=== PATIENT | female | born 1940 | race Caucasian/White ===

== ENCOUNTER → 2018-05-15 13:26 | Outpatient (CLI) | payer MEDICARE, SELFPAY ==
--- NOTE | 2018-05-15 | DI.MG.S_ITS ---
BILATERAL DIGITAL SCREENING MAMMOGRAM 3D/2D WITH CAD: 05/15/2018 CLINICAL: Routine screening. Comparison is made to exams dated: 04/14/2017 mammogram, 04/11/2016 mammogram, and 04/10/2015 mammogram - [facility]. There are scattered fibroglandular elements in both breasts. Current study was also evaluated with a Computer Aided Detection (CAD) system. There are benign vascular calcifications in both breasts. No significant masses, calcifications, or other findings are seen in either breast. There has been no significant interval change. IMPRESSION: There is no mammographic evidence of malignancy. A 1 year screening mammogram is recommended. This exam was interpreted at Station ID: [id number]. NOTE: For mammograms, a report in lay terms will be sent to the patient. Approximately 15% of breast malignancies will not be visualized mammographically. In the management of a palpable breast mass, a negative mammogram must not discourage biopsy of a clinically suspicious lesion. Electronically Signed By: Angelica biswas/steve:05/15/2018 14:20:31 letter sent: Normal Exam ACR BI-RADS Category 2: Benign Finding(s) 3342F
== END ==
PROVIDERS: PCP Internal Medicine; Visit Provider Internal Medicine
DX: Z12.31 Encounter for screening mammogram for malignant neoplasm of breast (principal)
CPT/HCPCS: 77063; 77067

== ENCOUNTER → 2018-08-11 13:59 | Outpatient (CLI) | payer MEDICARE, SELFPAY | PROVIDERS: PCP Student in an Organized Health Care Education/Training Program; Visit Provider Student in an Organized Health Care Education/Training Program | DX: M85.852 Other specified disorders of bone density and structure, left thigh (principal); Z78.0 Asymptomatic menopausal state; Z90.722 Acquired absence of ovaries, bilateral; Z87.891 Personal history of nicotine dependence | CPT/HCPCS: 77080 ==

== ENCOUNTER → 2019-05-20 16:35 | Outpatient (CLI) | payer MEDICARE, SELFPAY ==
--- NOTE | 2019-05-20 16:36 | DI.MG.S_ITS ---
BILATERAL DIGITAL SCREENING MAMMOGRAM 3D/2D WITH CAD: 05/20/2019 CLINICAL: Routine screening. Comparison is made to exams dated: 05/15/2018 mammogram, 04/14/2017 mammogram, 04/11/2016 mammogram, and 04/10/2015 mammogram - [facility]. There are scattered fibroglandular elements in both breasts. Current study was also evaluated with a Computer Aided Detection (CAD) system. There are benign vascular calcifications in both breasts. No significant masses, calcifications, or other findings are seen in either breast. There has been no significant interval change. IMPRESSION: There is no mammographic evidence of malignancy. A 1 year screening mammogram is recommended. This exam was interpreted at Station ID: [id number]. NOTE: For mammograms, a report in lay terms will be sent to the patient. Approximately 15% of breast malignancies will not be visualized mammographically. In the management of a palpable breast mass, a negative mammogram must not discourage biopsy of a clinically suspicious lesion. Electronically Signed By: Charles alexander/steve:05/20/2019 19:09:01 letter sent: Normal Exam ACR BI-RADS Category 2: Benign Finding(s) 3342F
== END ==
PROVIDERS: PCP Student in an Organized Health Care Education/Training Program; Visit Provider Student in an Organized Health Care Education/Training Program
DX: Z12.31 Encounter for screening mammogram for malignant neoplasm of breast (principal)
CPT/HCPCS: 77063; 77067

== ENCOUNTER → 2020-05-22 10:14 | Outpatient (CLI) | payer MEDICARE, SELFPAY ==
--- NOTE | 2020-05-22 | DI.MG.S_ITS ---
BILATERAL DIGITAL SCREENING MAMMOGRAM 3D/2D WITH CAD: 05/22/2020 CLINICAL: Routine screening. Comparison is made to exams dated: 05/20/2019 mammogram, 05/15/2018 mammogram, and 04/14/2017 mammogram - [facility]. There are scattered fibroglandular elements in both breasts. Current study was also evaluated with a Computer Aided Detection (CAD) system. There are benign vascular calcifications in both breasts. No significant masses, calcifications, or other findings are seen in either breast. There has been no significant interval change. IMPRESSION: BENIGN There is no mammographic evidence of malignancy. A 1 year screening mammogram is recommended. This exam was interpreted at Station ID: [id number]. NOTE: For mammograms, a report in lay terms will be sent to the patient. Approximately 15% of breast malignancies will not be visualized mammographically. In the management of a palpable breast mass, a negative mammogram must not discourage biopsy of a clinically suspicious lesion. Electronically Signed By: Stephen russ/steve:05/22/2020 11:23:46 letter sent: Normal Exam ACR BI-RADS Category 2: Benign Finding(s) 3342F
== END ==
PROVIDERS: PCP Student in an Organized Health Care Education/Training Program; Referring Provider Student in an Organized Health Care Education/Training Program; Visit Provider Student in an Organized Health Care Education/Training Program
DX: Z12.31 Encounter for screening mammogram for malignant neoplasm of breast (principal)
CPT/HCPCS: 77063; 77067

== ENCOUNTER → 2021-05-24 10:46 | Outpatient (CLI) | payer MEDICARE, SELFPAY ==
--- NOTE | 2021-05-24 | DI.MG.S_ITS ---
BILATERAL DIGITAL SCREENING MAMMOGRAM 3D/2D WITH CAD: 05/24/2021 CLINICAL: Routine screening. Comparison is made to exams dated: 05/22/2020 mammogram, 05/20/2019 mammogram, and 05/15/2018 mammogram - [facility]. There are scattered fibroglandular elements in both breasts. Current study was also evaluated with a Computer Aided Detection (CAD) system. There are benign vascular calcifications in both breasts. No significant masses, calcifications, or other findings are seen in either breast. There has been no significant interval change. IMPRESSION: BENIGN There is no mammographic evidence of malignancy. A 1 year screening mammogram is recommended. This exam was interpreted at Station ID: [id number]. NOTE: For mammograms, a report in lay terms will be sent to the patient. Approximately 15% of breast malignancies will not be visualized mammographically. In the management of a palpable breast mass, a negative mammogram must not discourage biopsy of a clinically suspicious lesion. Electronically Signed By: Oz paulino/steve:05/24/2021 11:24:01 letter sent: Normal Exam ACR BI-RADS Category 2: Benign Finding(s) 3342F
== END ==
PROVIDERS: PCP Student in an Organized Health Care Education/Training Program; Referring Provider Student in an Organized Health Care Education/Training Program; Visit Provider Student in an Organized Health Care Education/Training Program
DX: Z12.31 Encounter for screening mammogram for malignant neoplasm of breast (principal)
CPT/HCPCS: 77063; 77067

== ENCOUNTER → 2022-04-30 09:20 | Outpatient (CLI) | payer MEDICARE, SELFPAY | PROVIDERS: PCP Student in an Organized Health Care Education/Training Program; Referring Provider Student in an Organized Health Care Education/Training Program; Visit Provider Student in an Organized Health Care Education/Training Program | DX: Z78.0 Asymptomatic menopausal state (principal); Z13.820 Encounter for screening for osteoporosis; M85.852 Other specified disorders of bone density and structure, left thigh | CPT/HCPCS: 77080 ==

== ENCOUNTER → 2022-06-11 09:53 | Outpatient (CLI) | payer MEDICARE, SELFPAY ==
--- NOTE | 2022-06-11 | DI.MG.S_ITS ---
BILATERAL DIGITAL SCREENING MAMMOGRAM 3D/2D WITH CAD: 06/11/2022 CLINICAL: Routine screening. Comparison is made to exams dated: 05/24/2021 mammogram, 05/22/2020 mammogram, and 05/20/2019 mammogram - [facility]. There are scattered areas of fibroglandular density in both breasts (category b / 25%-50% glandular tissue). Current study was also evaluated with a Computer Aided Detection (CAD) system. There are benign vascular calcifications in both breasts. No significant masses, calcifications, or other findings are seen in either breast. There has been no significant interval change. IMPRESSION: BENIGN There is no mammographic evidence of malignancy. A 1 year screening mammogram is recommended. Based on the Tyrer Cuzick model (a risk assessment model) the patient's lifetime risk is 0.1% and her 10 year risk is 0.0%. According to the ACR, ACS, and NCCN guidelines, an annual breast MRI exam along with mammogram is recommended if the patient's lifetime risk is 20% or greater. This exam was interpreted at Station ID: [id number]. NOTE: For mammograms, a report in lay terms will be sent to the patient. Approximately 15% of breast malignancies will not be visualized mammographically. In the management of a palpable breast mass, a negative mammogram must not discourage biopsy of a clinically suspicious lesion. Electronically Signed By: Hussein kimbrough/steve:06/11/2022 13:57:31 letter sent: Normal Exam ACR BI-RADS Category 2: Benign Finding(s) 3342F
== END ==
PROVIDERS: PCP Student in an Organized Health Care Education/Training Program; Referring Provider Student in an Organized Health Care Education/Training Program; Visit Provider Student in an Organized Health Care Education/Training Program
DX: Z12.31 Encounter for screening mammogram for malignant neoplasm of breast (principal)
CPT/HCPCS: 77063; 77067

== ENCOUNTER 2023-06-18 10:01 | Observation (INO) | payer MEDICARE, SELFPAY ==
[2023-06-18] VITALS (12 sets, daily range): BP systolic 134–167; BP diastolic 63–98; PULSE 66–120; RESP 13–23; TEMP 36.3–36.8; O2SAT 94–99; BMI 29.2
--- NOTE | 2023-06-18 10:26 | DI.CT.S_ITS ---
PROCEDURE: CT HEAD/BRAIN WO CON INDICATIONS: confusion difficulty with words TECHNIQUE: Noncontrast 4.5 mm thick angled axial sections acquired from the foramen magnum to the vertex, with coronal and sagittal reformats. For radiation dose reduction, the following was used: automated exposure control, adjustment of mA and/or kV according to patient size. COMPARISON: None. FINDINGS: Image quality: Diagnostic. CSF spaces: Basal cisterns are patent. No extra-axial fluid collections. The ventricles are symmetric in size and shape. Brain: No intracranial bleeds or masses. There is cerebral volume loss for age, with resultant ventricular and sulcal prominence. There are periventricular and deep white matter chronic small vessel ischemic changes. There is intracranial internal carotid artery atherosclerosis. Skull and face: Calvarium and visualized facial bones appear intact, without suspicious lesions. Sinuses: Visualized sinuses and mastoids are clear. IMPRESSION: 1. No acute intracranial abnormalities. 2. Cerebral volume loss and chronic microvascular ischemic changes. Dictated by: Trish Rosario M.D. on 06/18/2023 at 10:38 Approved by: Trish Rosario M.D. on 06/18/2023 at 10:38
--- NOTE | 2023-06-18 10:30 | ED_ITS ---
HPI - Neuro Symptoms/Deficit General Chief Complaint: Neuro Symptoms/Deficit Stated Complaint: possible stroke, confused Time Seen by Provider: 06/18/23 10:16 Source: patient and family Mode of arrival: Ambulatory History of Present Illness HPI Narrative: Patient is an 83-year-old female history of macular degeneration stroke in 2017, some difficulty swallowing that has been progressively getting worse presents today with increased confusion and difficulty getting dressed. states that she swerved dinner last night was in her normal state of health. This morning woke up he notes that she had significant trouble getting herself dressed and was very confused about things. No obvious facial droop or unilateral weakness. Last known well was last night On Anticoagulants: No Related Data Previous Rx's Medication Instructions Recorded indomethacin 50 mg capsule 50 mg PO BID PRN gout #14 caps 07/25/22 methocarbamol 500 mg tablet 500 mg PO BEDTIME #90 tabs 02/21/23 nystatin 100,000 unit/gram topical 1 applic topical BID #60 grams 02/21/23 cream betamethasone, augmented 0.05 % 1 applic topical DAILY #45 grams 06/05/23 topical cream Allergies Allergy/AdvReac Type Severity Reaction Status Date / Time codeine [CODEINE] Allergy Intermediate TACHYCARDIA, Verified 06/18/23 10:12 RASH acetaminophen [From PERCOCET] Allergy Unknown CONFUSION Verified 06/18/23 10:12 oxycodone [From PERCOCET] Allergy Unknown CONFUSION Verified 06/18/23 10:12 Sulfa (Sulfonamide Allergy Unknown TACHYCARDIA, Verified 06/18/23 10:12 Antibiotics) RASH [SULFA (SULFONAMIDE ANTIBIOTICS)] morphine [MORPHINE] AdvReac Intermediate TACHYCARDIA, Verified 06/18/23 10:12 RASH Penicillins [PENICILLINS] AdvReac Mild TACHYCARDIA, Verified 06/18/23 10:12 RASH adhesive tape [ADHESIVE TAPE] AdvReac Unknown RASH Verified 06/18/23 10:12 Review of Systems Hematologic/Lymphatic On Anticoagulants: No Patient History Medical History (Updated 06/18/23 @ 14:48 by Teena Curiel MD) Transient ischemic attack Actinic keratoses Gout Stroke (~2016) Measles (~1945) Chicken pox (~1939) Cataracts, bilateral Hemorrhoid Diverticular disease Colon polyps Skin cancer Family History Father History of heart attack Mother History of heart attack Social History Smoking Status: Never smoker alcohol intake: never substance use type: does not use Smoking Status: Never smoker alcohol intake frequency: holidays/special occasions only Substance Use Type: does not use Exam Initial Vital Signs Initial Vital Signs: Vital Signs Temperature 97.3 F L 06/18/23 10:12 Pulse Rate 120 H 06/18/23 10:12 Respiratory Rate 15 06/18/23 10:12 Blood Pressure 150/98 H 06/18/23 10:12 Pulse Oximetry 96 06/18/23 10:12 Oxygen Delivery Method Room Air 06/18/23 10:12 GENERAL: Alert pleasant 83-year-old female and in no acute distress. HEENT: Head atraumatic,EOMI, pupils reactive, face symmetric, moist mucous membranes CARDIOVASCULAR: Regular rate and rhythm without murmurs, rubs or gallops. RESPIRATORY: Breath sounds equal bilaterally, no wheezes rales or rhonchi. ABDOMEN: Soft, nontender. Normoactive bowel sounds all 4 quadrants. No guarding or rebound. EXTREMITIES: Normal range of motion, no clubbing or edema. Neurovascularly intact NEUROLOGICAL: Alert and oriented x4. Difficulty with word finding no real slurring of speech good [id number] good strength no facial droop SKIN: Warm, dry, no laceration, no petechiae, no rashes or lesions. Scores NIH Stroke Scale Level of Conciousness: Alert, keenly responsive Ask month/age: Answers one question correctly, intubated follow commands Open/close eyes, close hand: Performs both tasks correctly Best gaze horizontal: Normal Visual jane: No visual loss Facial palsy: Normal symetrical movement Left arm drift: No drift for full 10 sec Right arm drift: No drift for full 10 sec Left leg drift: No drift for full 5 sec Right leg drift: No drift for full 5 sec Limb ataxia: Absent Sensory on face/arms/legs: Normal, no sensory loss Best language: No aphasia, normal Dysarthria: Mild to mod,some slurring Extinction or inattention: No abnormality Total NIH Stroke scale score: 2 Course Orders Ordered: ED Orders 06/18/23 10:20 Complete Blood Count AUTO DIFF Stat Comprehensive Metabolic Panel Stat Ethanol (ETOH) Stat PTT Partial Thromboplastin Nio Stat Prothrombin Time INR Stat Troponin & CK Cardiac Panel Stat 06/18/23 10:26 CT head/brain wo con Stat 06/18/23 10:31 CT angio head and neck Stat 06/18/23 11:05 Respiratory Panel (Film Array) Stat 06/18/23 11:06 EKG-12 Lead Stat 06/18/23 11:45 Urinalysis and Microscopic Stat Urine Drug Screen, Rapid Stat Ibuprofen (Ibuprofen 400 Mg Tablet) 400 mg PO Q4H RAVINDER Last Admin: 06/18/23 15:02 Dose: 400 mg Documented By: SHELLEY Ibuprofen (Ibuprofen 400 Mg Tablet) 400 mg PO Q4H PRN PRN Reason: Pain, Mild (1-3) Naloxone HCl (Naloxone 0.4 Mg/Ml Vial) 0.2 mg IV Q2MIN PRN PRN Reason: Opiate Reversal Naloxone HCl (Naloxone 0.4 Mg/Ml Vial) 0.2 mg IV Q2MIN PRN PRN Reason: Opiate Reversal Discontinued Medications Aspirin (Aspirin Ec 325 Mg Tablet) 325 mg PO NOW ONE Stop: 06/18/23 12:26 Last Admin: 06/18/23 13:11 Dose: 325 mg Documented By: SHELLEY Vital Signs Vital signs: Vital Signs - 8 hr 06/18/23 10:12 06/18/23 10:49 06/18/23 11:00 Temperature 97.3 F L Pulse Rate 120 H 75 Respiratory Rate 15 14 Blood Pressure 150/98 H 167/85 H Pulse Oximetry 96 97 Oxygen Delivery Method Room Air 06/18/23 11:00 06/18/23 11:30 06/18/23 11:33 Temperature Pulse Rate 112 H 108 H Respiratory Rate 16 21 Blood Pressure 167/77 H Pulse Oximetry 98 97 Oxygen Delivery Method 06/18/23 11:33 06/18/23 11:41 06/18/23 11:41 Temperature Pulse Rate 70 71 Respiratory Rate 23 19 Blood Pressure 167/63 H Pulse Oximetry 97 98 Oxygen Delivery Method 06/18/23 12:00 06/18/23 12:00 06/18/23 12:30 Temperature Pulse Rate 68 109 H Respiratory Rate 18 13 Blood Pressure 148/67 H Pulse Oximetry 97 97 Oxygen Delivery Method 06/18/23 12:30 Temperature Pulse Rate Respiratory Rate Blood Pressure 148/65 H Pulse Oximetry Oxygen Delivery Method MDM - Neuro Symptoms/Deficit Lab Data 06/18/23 10:20 06/18/23 10:20 Labs: Lab Results 06/18/23 06/18/23 06/18/23 Range/Units 10:20 11:05 11:45 WBC 5.6 (4.5-11.0) X10^3/uL RBC 4.48 (4.0-5.2) X10^6/uL Hgb 14.3 (12.0-16.0) g/dL Hct 42.3 (36-46) % MCV 94.4 (80-100) fL MCH 31.9 (26-34) PG MCHC 33.8 (30-36) % RDW 13.0 (11.6-14.8) % Plt Count 224 (150-400) X10^3/uL Neut % (Auto) 44.2 L (50-75) % Lymph % (Auto) 41.5 H (25-40) % [place] % (Auto) 10.0 (3-14) % Eos % (Auto) 3.3 (2-4) % Baso % (Auto) 1.0 (0-2) % Neut # (Auto) 2500 (2357-4915) /uL Lymph # (Auto) 2300 (4659-6310) /uL [place] # (Auto) 600 (0-900) /uL Eos # (Auto) 200 (0-450) /uL Baso # (Auto) 100 (0-100) /uL PT 11.1 (9.4-12.5) SECONDS INR 1.0 (0.9-1.3) APTT 33 (25.1-36.5) SECONDS Sodium 143 (137-145) mmol/L Potassium 3.9 (3.4-5.1) mmol/L Chloride 107 (98-107) mmol/L Carbon Dioxide 23 (22-32) mmol/L BUN 17 (7-17) mg/dL Creatinine 0.96 (0.52-1.04) mg/dL Estimated GFR 58 L (>60) mL/min BUN/Creatinine Ratio 17.7 (6-22) Glucose 102 (80-110) mg/dL Calcium 9.5 (8.4-10.2) mg/dL Total Bilirubin 0.8 (0.2-1.3) mg/dL AST 33 (14-36) IU/L ALT 19 (<35) IU/L Alkaline Phosphatase 91 (38-126) U/L Total Creatine Kinase 70 (30-135) U/L Troponin I < 0.012 (0.01-0.034) ng/mL Total Protein 7.7 (6.3-8.2) g/dL Albumin 4.3 (3.5-5.0) g/dL Globulin 3.4 (1.7-4.1) g/dL Albumin/Globulin Ratio 1.3 (1.0-2.8) Urine Color Yellow Urine Appearance Clear Urine pH 7.5 (4.5-8.0) Ur Specific [place] 1.010 (1.000-1.035) Urine Protein Negative (Negative) Urine Glucose (UA) Negative (Negative) g/dL Urine Ketones Negative (NEGATIVE) Urine Occult Blood Negative (Negative) Urine Nitrate Negative (Negative) Urine Bilirubin Negative (NEGATIVE) Urine Urobilinogen 0.2 (0.2) E.U./dL Ur Leukocyte Esterase Negative (NEGATIVE) Urine RBC None seen (0-5/HPF) Urine WBC None seen (0-5/HPF) Ur Squamous Epith Cells None seen (0-5/HPF) Urine Bacteria None seen (None) Ur Culture Indicated? Cult not indicated Vol Urine Centrifuged 10ml (spun) U Opiates 300ng/mL cut Negative (Negative) Ur Oxycodone Screen Negative (Negative) Urine Methadone Screen Negative (Negative) Ur Barbiturates Screen Negative (Negative) U Tricyclic Antidepress Negative (Negative) Ur Phencyclidine Scrn Negative (Negative) Ur Amphetamines Screen Negative (Negative) U Methamphetamines Scrn Negative (Negative) Ur MDMA Scrn (Ecstasy) Negative (Negative) U Benzodiazepines Scrn Negative (Negative) Urine Cocaine Screen Negative (Negative) U Marijuana (THC) Screen Negative (Negative) Urine Specific [place] (Normal) Ethyl Alcohol < 10 ( - 10) mg/dL Ur Creatinine (Normal) Chlamy pneumoniae PCR Not detected (Not Detect) Adenovirus (PCR) Not detected (Not Detect) B.parapertussis DNA PCR Not detected (Not Detecte) Coronavirus OC43 (PCR) Not detected (Not Detect) Coronavirus HKU1 (PCR) Not detected (Not Detect) Coronavirus 229E (PCR) Not detected (Not Detect) SARS-CoV-2 (PCR) Not detected (Not Detecte) Coronavirus NL63 (PCR) Not detected (Not Detect) Human Metapneumovir PCR Not detected (Not Detect) Influenza Type A (PCR) Not detected (Not Detect) Influenza Type B (PCR) Not detected (Not Detect) M. pneumoniae (PCR) Not detected (Not Detect) Parainfluenza 1 (PCR) Not detected (Not Detect) Parainfluenza 2 (PCR) Not detected (Not Detect) Parainfluenza 3 (PCR) Not detected (Not Detect) Parainfluenza 4 (PCR) Not detected (Not Detect) RSV (PCR) Not detected (Not Detect) Entero/Rhino (PCR) Not detected (Not Detect) 06/18/23 Range/Units 11:45 WBC (4.5-11.0) X10^3/uL RBC (4.0-5.2) X10^6/uL Hgb (12.0-16.0) g/dL Hct (36-46) % MCV (80-100) fL MCH (26-34) PG MCHC (30-36) % RDW (11.6-14.8) % Plt Count (150-400) X10^3/uL Neut % (Auto) (50-75) % Lymph % (Auto) (25-40) % [place] % (Auto) (3-14) % Eos % (Auto) (2-4) % Baso % (Auto) (0-2) % Neut # (Auto) (1351-9433) /uL Lymph # (Auto) (4940-3803) /uL [place] # (Auto) (0-900) /uL Eos # (Auto) (0-450) /uL Baso # (Auto) (0-100) /uL PT (9.4-12.5) SECONDS INR (0.9-1.3) APTT (25.1-36.5) SECONDS Sodium (137-145) mmol/L Potassium (3.4-5.1) mmol/L Chloride (98-107) mmol/L Carbon Dioxide (22-32) mmol/L BUN (7-17) mg/dL Creatinine (0.52-1.04) mg/dL Estimated GFR (>60) mL/min BUN/Creatinine Ratio (6-22) Glucose (80-110) mg/dL Calcium (8.4-10.2) mg/dL Total Bilirubin (0.2-1.3) mg/dL AST (14-36) IU/L ALT (<35) IU/L Alkaline Phosphatase (38-126) U/L Total Creatine Kinase (30-135) U/L Troponin I (0.01-0.034) ng/mL Total Protein (6.3-8.2) g/dL Albumin (3.5-5.0) g/dL Globulin (1.7-4.1) g/dL Albumin/Globulin Ratio (1.0-2.8) Urine Color Urine Appearance Urine pH Normal (4.5-8.0) Ur Specific [place] (1.000-1.035) Urine Protein (Negative) Urine Glucose (UA) (Negative) g/dL Urine Ketones (NEGATIVE) Urine Occult Blood (Negative) Urine Nitrate (Negative) Urine Bilirubin (NEGATIVE) Urine Urobilinogen (0.2) E.U./dL Ur Leukocyte Esterase (NEGATIVE) Urine RBC (0-5/HPF) Urine WBC (0-5/HPF) Ur Squamous Epith Cells (0-5/HPF) Urine Bacteria (None) Ur Culture Indicated? Vol Urine Centrifuged U Opiates 300ng/mL cut (Negative) Ur Oxycodone Screen (Negative) Urine Methadone Screen (Negative) Ur Barbiturates Screen (Negative) U Tricyclic Antidepress (Negative) Ur Phencyclidine Scrn (Negative) Ur Amphetamines Screen (Negative) U Methamphetamines Scrn (Negative) Ur MDMA Scrn (Ecstasy) (Negative) U Benzodiazepines Scrn (Negative) Urine Cocaine Screen (Negative) U Marijuana (THC) Screen (Negative) Urine Specific [place] Normal (Normal) Ethyl Alcohol ( - 10) mg/dL Ur Creatinine Normal (Normal) Chlamy pneumoniae PCR (Not Detect) Adenovirus (PCR) (Not Detect) B.parapertussis DNA PCR (Not Detecte) Coronavirus OC43 (PCR) (Not Detect) Coronavirus HKU1 (PCR) (Not Detect) Coronavirus 229E (PCR) (Not Detect) SARS-CoV-2 (PCR) (Not Detecte) Coronavirus NL63 (PCR) (Not Detect) Human Metapneumovir PCR (Not Detect) Influenza Type A (PCR) (Not Detect) Influenza Type B (PCR) (Not Detect) M. pneumoniae (PCR) (Not Detect) Parainfluenza 1 (PCR) (Not Detect) Parainfluenza 2 (PCR) (Not Detect) Parainfluenza 3 (PCR) (Not Detect) Parainfluenza 4 (PCR) (Not Detect) RSV (PCR) (Not Detect) Entero/Rhino (PCR) (Not Detect) Point of Care Testing Glucose POC 102 Urine Dip Bedside Urine Glucose Negative Bedside Urine Bilirubin - Negative Bedside Urine Ketone - Negative Urine Specific [place] 1.010 Bedside Urine Occult Blood - Negative Bedside Urine pH 7.0 Bedside Urine Protein - Negative Bedside Urine Urobilinogen - Negative Bedside Urine Nitrite - Negative Bedside Urine Leukocytes - Negative Esterase Imaging Data CT scan - head: Radiologist's Impression: PROCEDURE: CT HEAD/BRAIN WO CON INDICATIONS: confusion difficulty with words TECHNIQUE: Noncontrast 4.5 mm thick angled axial sections acquired from the foramen magnum to the vertex, with coronal and sagittal reformats. For radiation dose reduction, the following was used: automated exposure control, adjustment of mA and/or kV according to patient size. COMPARISON: None. FINDINGS: Image quality: Diagnostic. CSF spaces: Basal cisterns are patent. No extra-axial fluid collections. The ventricles are symmetric in size and shape. Brain: No intracranial bleeds or masses. There is cerebral volume loss for age, with resultant ventricular and sulcal prominence. There are periventricular and deep white matter chronic small vessel ischemic changes. There is intracranial internal carotid artery atherosclerosis. Skull and face: Calvarium and visualized facial bones appear intact, without suspicious lesions. Sinuses: Visualized sinuses and mastoids are clear. IMPRESSION: 1. No acute intracranial abnormalities. 2. Cerebral volume loss and chronic microvascular ischemic changes. Dictated by: Trish Rosario M.D. on 06/18/2023 at 10:38 Approved by: Trish Rosario M.D. on 06/18/2023 at 10:38 CTA - brain/neck: Radiologist's Impression: PROCEDURE: CT ANGIO HEAD AND NECK INDICATIONS: difficulty with words TECHNIQUE: After the administration of intravenous contrast, 1 mm thick sections acquired from the aortic arch through the [place]. 3-dimensional ymbwzkt-hdnkakzck-sxhlujayhd (MIP) and/or volume rendering reformats were acquired of the central intracranial vasculature and neck separately. For radiation dose reduction, the following was used: automated exposure control, adjustment of mA and/or kV according to patient size. COMPARISON: None. FINDINGS: Image quality: Diagnostic. BRAIN: CSF spaces: Ventricles are normal in size and shape. Basal cisterns are patent. No extra-axial fluid collections. Brain: No significant abnormality of the brain can be seen. Skull and face: Calvarium and facial bones appear intact, without suspicious lesions. Orbits appear normal. Sinuses: Sinuses and mastoids are clear. HEAD CT ANGIOGRAPHY: Anterior circulation: Intracranial internal carotid arteries are normal in size and flow. There are calcified plaques in the cavernous segment of the internal carotid arteries bilaterally. The flow within the paired anterior cerebral arteries is normal and symmetric. The flow within the middle cerebral arteries is normal and symmetric. The anterior communicating artery is seen. No aneurysms are seen. Posterior circulation: Visualized portions of the vertebral arteries demonstrate normal caliber, and join to form a normal appearing basilar artery. Flow within the posterior cerebral arteries is normal and symmetric. No aneurysms are seen. 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 The great vessels demonstrate a conventional anatomy as they arise from the aortic arch. The origins of the common carotid arteries appear patent. The common carotid arteries demonstrate normal caliber and courses. The bifurcation regions are both widely patent. The internal carotid arteries demonstrate normal calibers and courses. Posterior circulation: The origins of the vertebral arteries both appear widely patent. The more superior extracranial portions of both vertebral arteries also demonstrate normal courses and calibers. They join to form a normal appearing basilar artery. Soft tissues: Visualized neck soft tissues demonstrate no suspicious abnormalities. Moderate cardiomegaly. Moderate coronary artery calcification. Bones: No suspicious bony lesions. There is grade 1 anterolisthesis of C2 on C3. Severe spondylitic changes noted. IMPRESSION: 1. No acute intracranial abnormalities. 2. No large vessel occlusion of high grade stenosis in anterior or posterior circulations. 3. No large vessel occlusion of high grade stenosis in cervical carotid arteries or vertebral arteries bilaterally. 4. A bearing right subclavian artery. Any quantitative measurements of stenosis were performed using NASCET criteria. Dictated by: Trish Rosario M.D. on 06/18/2023 at 10:49 ECG Data Attestation: I personally reviewed and interpreted this ECG as follows: Interpretation: EKG 1. Tachycardia unclear P waves regular no ST changes EKG 2. Sinus rhythm rate [address] changes MDM Narrative Medical decision making narrative: Patient 83-year-old female presents with last known well last night presents today with confusion some more trouble finding. She has no other focal deficits. She has not a tPA candidate due to greater than 4 hours of last known well. She is NIH stroke scale of of 2. Symptoms have improved a little bit in the ED. however she likely had a TIA in 2017. At that time she presented with word trouble and confusion. Blood work has been reviewed no obvious significant clinical abnormality Imaging has been reviewed no large vessel occlusion or intracranial hemorrhage identified She has been given aspirin has accepted patient. #187: Stroke & Stroke Rehabilitation: Thrombolytic Therapy [] The patient, who arrived at the hospital within 2 hours of time last known well, was diagnosed with subacute or acute ischemic stroke. IV t-PA was initiated within 3 hours of time last known well. [SATISFIES MIPS PERFORMANCE] [] The patient was diagnosed with subacute or acute ischemic stroke. IV t-PA was not initiated within 3 hours of last known well due to [select]: [MIPS PERFORMANCE EXCEPTION/EXCLUSION] X Patient arrived more than 2 hours after last known well time, or the time last known well is unknown [] Patient has a medical contra-indication or reason for not administering [] (ex. neurologist does not believe t-PA is appropriate, active internal bleeding, serious head trauma, acute current or history of intracranial hemorrhage, uncontrollable hypertension, seizure at onset of stroke, CVA in last 3 months, Intracranial or intraspinal surgery in last 3 months, bleeding disorder, thrombocytopenia < 100,000, early radiographic ischemic changes on head CT, INR > 1.7, intracranial neoplasm, AVM, or aneurysm, patient in stroke trial, patient admitted for elective carotid intervention) []Patient or family declined IV t-PA [] The patient, who arrived at the hospital within 2 hours of time last known well, was diagnosed with subacute or acute ischemic stroke. IV t-PA was not initiated within 3 hours of time last known well. [DOES NOT SATISFY MIPS PERFORMANCE] Discharge Plan Departure Patient Disposition: Admitted As Inpatient Clinical Impression: CVA (cerebral vascular accident) Admit Date/Time: 06/18/23 12:49 Admit Provider: Teena Curiel
[2023-06-18 10:33] LABS: Add Manual Diff / Slide Review NO; Basophils Absolute Auto 100 /uL (0-100); Eosinophils Absolute Auto 200 /uL (0-450); Eosinophils Percent Auto 3.3 % (2-4); Hematocrit 42.3 % (36-46); Hemoglobin 14.3 g/dL (12.0-16.0); Lymphocytes Absolute Auto 2300 /uL (1100-4500); Lymphocytes Percent Auto 41.5 % (25-40); Mean Corpuscular HGB Conc 33.8 % (30-36); Mean Corpuscular Hemoglobin 31.9 PG (26-34); Mean Corpuscular Volume 94.4 fL (80-100); Monocytes Absolute Auto 600 /uL (0-900); Neutrophils Absolute Auto 2500 /uL (1500-7000); Neutrophils Percent Auto 44.2 % (50-75); Platelet Count 224 X10^3/uL (150-400); Red Blood Cell Count 4.48 X10^6/uL (4.0-5.2); White Blood Cell Count 5.6 X10^3/uL (4.5-11.0)
[2023-06-18 10:36] LABS: Prothrombin Time 11.1 SECONDS (9.4-12.5)
[2023-06-18 10:39] LABS: PTT Partial Thromboplastin Tim 33 SECONDS (25.1-36.5)
[2023-06-18 10:42] LABS: Alanine Aminotransferase 19 IU/L (<35); Albumin 4.3 g/dL (3.5-5.0); Albumin Globulin Ratio 1.3 (1.0-2.8); Alkaline Phosphatase 91 U/L (38-126); Aspartate Aminotransferase 33 IU/L (14-36); BUN Creatinine Ratio 17.7 (6-22); Bilirubin Total 0.8 mg/dL (0.2-1.3); Blood Urea Nitrogen 17 mg/dL (7-17); Calcium 9.5 mg/dL (8.4-10.2); Carbon Dioxide 23 mmol/L (22-32); Chloride 107 mmol/L (98-107); Creatine Kinase 70 U/L (30-135); Estimated Glomerular Filt Rate 58 mL/min (>60); Ethanol (ETOH) < 10 mg/dL; Globulin 3.4 g/dL (1.7-4.1); Glucose 102 mg/dL (80-110); HEMOLYSIS < 15 (0-50); Potassium 3.9 mmol/L (3.4-5.1); Sodium 143 mmol/L (137-145); Total Protein 7.7 g/dL (6.3-8.2)
[2023-06-18 10:53] LABS: Troponin I < 0.012 ng/mL (0.01-0.034)
[2023-06-18 11:55] LABS: Appearance Urine UA CLEAR; Bilirubin Urine UA NEGATIVE (NEGATIVE); Color Urine UA YELLOW; Glucose Urine UA NEGATIVE (Negative); Ketones Urine UA NEGATIVE (NEGATIVE); Leukocyte Esterase Urine UA NEGATIVE (NEGATIVE); Nitrite Urine UA NEGATIVE (Negative); Occult Blood Urine UA NEGATIVE (Negative); Protein Urine UA NEGATIVE (Negative); Urobilinogen Urine UA 0.2 E.U./dL (0.2)
[2023-06-18 11:58] LABS: pH Urine UA 7.5 (4.5-8.0)
[2023-06-18 11:59] LABS: UR Morphine/Opiate cutoff 300 Negative (Negative); Ur Creatinine Normal (Normal); Ur Specific Gravity Normal (Normal); Urine Amphetamines Negative (Negative); Urine Barbiturates Negative (Negative); Urine Benzodiazepines Negative (Negative); Urine Cocaine Negative (Negative); Urine MDMA Negative (Negative); Urine Methadone Negative (Negative); Urine Methamphetamines Negative (Negative); Urine Oxycodone Negative (Negative); Urine Phencyclidine Negative (Negative); Urine Tetrahydrocannabinol Negative (Negative); Urine Tricyclic Antidepressant Negative (Negative); Urine pH Normal (Normal)
[2023-06-18 12:06] LABS: Bacteria Urine None Seen; Culture Indicated Urine Cult Not Indicated; RBC Urine None Seen (0-5/HPF); Squamous Epithelial Cell Urine None Seen (0-5/HPF); Urine Volume 10mL (spun); WBC Urine None Seen (0-5/HPF)
[2023-06-18 12:20] LABS: Adenovirus Not Detected (Not Detect); B. parapertussis Not Detected (Not Detecte); Bordetella pertussis Not Detected (Not Detect); Chlamydophila pneumoniae Not Detected (Not Detect); Coronavirus 229E Not Detected (Not Detect); Coronavirus HKU1 Not Detected (Not Detect); Coronavirus NL 63 Not Detected (Not Detect); Coronavirus OC43 Not Detected (Not Detect); Human Metapneumovirus Not Detected (Not Detect); Human Rhinovirus/Enterovirus Not Detected (Not Detect); Influenza A Not Detected (Not Detect); Influenza B Not Detected (Not Detect); Mycoplasma pneumoniae Not Detected (Not Detect); Parainfluenza Virus 1 Not Detected (Not Detect); Parainfluenza Virus 2 Not Detected (Not Detect); Parainfluenza Virus 3 Not Detected (Not Detect); Parainfluenza Virus 4 Not Detected (Not Detect); Respiratory Syncytial Virus Not Detected (Not Detect); SARS- CoV-2 Not Detected (Not Detecte)
[2023-06-18] MEDS: ASPIRIN EC 325 MG TABLET PO (13:11)
--- NOTE | 2023-06-18 13:53 | PM.HP.1 ---
History of Present Illness History of Present Illness Date Patient Seen: 06/18/23 Time Patient Seen: 13:30 Date of Onset of Symptoms: 06/18/23 Chief complaint: possible stroke, confused Narrative: Johanny is a 83-year-old female with history of TIA many years ago not on statin presenting with confusion and word-finding difficulty earlier this morning. Last known normal was last night before going to bed. Symptoms seem to have improved significantly since arriving at the ER. Johanny notes that she has had this happen once before when she was diagnosed with a TIA. She had previously been counseled to start a statin but she does not believe that this is the right choice for her because she is worried about side effects. She reiterates multiple times that she will not be taking a statin. In the ER, she was noted to have somewhat irregular heart rate intermittently but this was not caught on any EKGs. She denies chest pain, shortness for breath, other cardiac complaints. She denies other medical problems and doesnt take any other medications aside from a myscle relaxer for generalized pain which she states is related to her age. [facility] Medical History (Updated 06/18/23 @ 14:48 by Teena Curiel MD) Transient ischemic attack Actinic keratoses Gout Stroke (~2017) Measles (~1945) Chicken pox (~1939) Cataracts, bilateral Hemorrhoid Diverticular disease Colon polyps Skin cancer Family History Father History of heart attack Mother History of heart attack Social History household members: significant other Smoking Status: Never smoker alcohol intake: never substance use type: does not use Meds Home Medications and Allergies Home Medications Medication Instructions Recorded Confirmed Type indomethacin 50 mg capsule 50 mg PO BID PRN gout #14 caps 07/25/22 06/18/23 Rx methocarbamol 500 mg tablet 500 mg PO BEDTIME #90 tabs 02/21/23 06/18/23 Rx nystatin 100,000 unit/gram topical 1 applic topical BID #60 grams 02/21/23 06/18/23 Rx cream betamethasone, augmented 0.05 % 1 applic topical DAILY #45 grams 06/05/23 06/18/23 Rx topical cream Allergies Allergy/AdvReac Type Severity Reaction Status Date / Time codeine [CODEINE] Allergy Intermediate TACHYCARDIA, Verified 06/18/23 10:12 RASH acetaminophen [From PERCOCET] Allergy Unknown CONFUSION Verified 06/18/23 10:12 oxycodone [From PERCOCET] Allergy Unknown CONFUSION Verified 06/18/23 10:12 Sulfa (Sulfonamide Allergy Unknown TACHYCARDIA, Verified 06/18/23 10:12 Antibiotics) RASH [SULFA (SULFONAMIDE ANTIBIOTICS)] morphine [MORPHINE] AdvReac Intermediate TACHYCARDIA, Verified 06/18/23 10:12 RASH Penicillins [PENICILLINS] AdvReac Mild TACHYCARDIA, Verified 06/18/23 10:12 RASH adhesive tape [ADHESIVE TAPE] AdvReac Unknown RASH Verified 06/18/23 10:12 Review of Systems Review of Systems Narrative: Endorses some confusion No change in vision No dizziness No chest pain No shortness of breath No palpitations Exam Vital Signs (past 8 hours): - 06/18/23 10:12 06/18/23 10:49 06/18/23 11:00 Temperature 97.3 F L Pulse Rate 120 H 75 Respiratory Rate 15 14 Blood Pressure 150/98 H 167/85 H Pulse Oximetry 96 97 Oxygen Delivery Method Room Air 06/18/23 11:00 06/18/23 11:30 06/18/23 11:33 Temperature Pulse Rate 112 H 108 H Respiratory Rate 16 21 Blood Pressure 167/77 H Pulse Oximetry 98 97 Oxygen Delivery Method 06/18/23 11:33 06/18/23 11:41 06/18/23 11:41 Temperature Pulse Rate 70 71 Respiratory Rate 23 19 Blood Pressure 167/63 H Pulse Oximetry 97 98 Oxygen Delivery Method 06/18/23 12:00 06/18/23 12:00 06/18/23 12:30 Temperature Pulse Rate 68 109 H Respiratory Rate 18 13 Blood Pressure 148/67 H Pulse Oximetry 97 97 Oxygen Delivery Method 06/18/23 12:30 06/18/23 13:00 06/18/23 13:00 Temperature Pulse Rate 66 Respiratory Rate 18 Blood Pressure 148/65 H 149/67 H Pulse Oximetry 98 Oxygen Delivery Method Oxygen Delivery Method Room Air Narrative Exam Narrative: GEN: Healthy elderly appearing female, well-developed, NAD. PSYCH: Good Judgment. AOx3. Normal memory, mood, and affect HEENT: -Head: NC/AT -Eyes: No discharge or redness. Some crusting noted below the right eye -Ears: External ears are normal. -Nose: Normal nares. -Mouth and throat: MMM, uvula midline CV: warm and well perfused, short bursts of rapid heart rate auscultated before resolution to normal heart rate, no murmurs LUNGS: CTAB, no w/r/c. SKIN: Warm, well perfused. No skin rashes , actinic keratoses noted on the cheeks MSK: Normal strength in arms and legs, symmetric bilaterally EXT: No clubbing, cyanosis, or edema NEURO: Cranial nerves 2-10 intact. No pronator drift Elbow flexion, elbow extension and interossei 5/5 strength bilaterally Knee flexion, knee extension, dorsiflexion, plantar flexion, hip extension 5/5 bilaterally No [id number] dysmetria Normal sensation bilaterally [id number] test normal Rapid alternating hand movements normal Negative Romberg No ataxia Objective Imaging CT scan - head: Radiologist's impression: 1. No acute intracranial abnormalities. 2. Cerebral volume loss and chronic microvascular ischemic changes. CTA head/neck: Radiologist's impression: 1. No acute intracranial abnormalities. 2. No large vessel occlusion of high grade stenosis in anterior or posterior circulations. 3. No large vessel occlusion of high grade stenosis in cervical carotid arteries or vertebral arteries bilaterally. 4. A bearing right subclavian artery. Labs 06/18/23 10:20 06/18/23 10:20 Labs: Laboratory Results - last 24 hr 06/18/23 06/18/23 06/18/23 10:20 11:05 11:45 WBC 5.6 RBC 4.48 Hgb 14.3 Hct 42.3 MCV 94.4 MCH 31.9 MCHC 33.8 RDW 13.0 Plt Count 224 Neut % (Auto) 44.2 L Lymph % (Auto) 41.5 H [place] % (Auto) 10.0 Eos % (Auto) 3.3 Baso % (Auto) 1.0 Neut # (Auto) 2500 Lymph # (Auto) 2300 [place] # (Auto) 600 Eos # (Auto) 200 Baso # (Auto) 100 PT 11.1 INR 1.0 APTT 33 Sodium 143 Potassium 3.9 Chloride 107 Carbon Dioxide 23 BUN 17 Creatinine 0.96 Estimated GFR 58 L BUN/Creatinine Ratio 17.7 Glucose 102 Calcium 9.5 Total Bilirubin 0.8 AST 33 ALT 19 Alkaline Phosphatase 91 Total Creatine Kinase 70 Troponin I < 0.012 Total Protein 7.7 Albumin 4.3 Globulin 3.4 Albumin/Globulin Ratio 1.3 Urine Color Yellow Urine Appearance Clear Urine pH 7.5 Ur Specific [place] 1.010 Urine Protein Negative Urine Glucose (UA) Negative Urine Ketones Negative Urine Occult Blood Negative Urine Nitrate Negative Urine Bilirubin Negative Urine Urobilinogen 0.2 Ur Leukocyte Esterase Negative Urine RBC None seen Urine WBC None seen Ur Squamous Epith Cells None seen Urine Bacteria None seen Ur Culture Indicated? Cult not indicated Vol Urine Centrifuged 10ml (spun) U Opiates 300ng/mL cut Negative Ur Oxycodone Screen Negative Urine Methadone Screen Negative Ur Barbiturates Screen Negative U Tricyclic Antidepress Negative Ur Phencyclidine Scrn Negative Ur Amphetamines Screen Negative U Methamphetamines Scrn Negative Ur MDMA Scrn (Ecstasy) Negative U Benzodiazepines Scrn Negative Urine Cocaine Screen Negative U Marijuana (THC) Screen Negative Urine Specific [place] Ethyl Alcohol < 10 Ur Creatinine Chlamy pneumoniae PCR Not detected Adenovirus (PCR) Not detected B.parapertussis DNA PCR Not detected Coronavirus OC43 (PCR) Not detected Coronavirus HKU1 (PCR) Not detected Coronavirus 229E (PCR) Not detected SARS-CoV-2 (PCR) Not detected Coronavirus NL63 (PCR) Not detected Human Metapneumovir PCR Not detected Influenza Type A (PCR) Not detected Influenza Type B (PCR) Not detected M. pneumoniae (PCR) Not detected Parainfluenza 1 (PCR) Not detected Parainfluenza 2 (PCR) Not detected Parainfluenza 3 (PCR) Not detected Parainfluenza 4 (PCR) Not detected RSV (PCR) Not detected Entero/Rhino (PCR) Not detected 06/18/23 11:45 WBC RBC Hgb Hct MCV MCH MCHC RDW Plt Count Neut % (Auto) Lymph % (Auto) [place] % (Auto) Eos % (Auto) Baso % (Auto) Neut # (Auto) Lymph # (Auto) [place] # (Auto) Eos # (Auto) Baso # (Auto) PT INR APTT Sodium Potassium Chloride Carbon Dioxide BUN Creatinine Estimated GFR BUN/Creatinine Ratio Glucose Calcium Total Bilirubin AST ALT Alkaline Phosphatase Total Creatine Kinase Troponin I Total Protein Albumin Globulin Albumin/Globulin Ratio Urine Color Urine Appearance Urine pH Normal Ur Specific [place] Urine Protein Urine Glucose (UA) Urine Ketones Urine Occult Blood Urine Nitrate Urine Bilirubin Urine Urobilinogen Ur Leukocyte Esterase Urine RBC Urine WBC Ur Squamous Epith Cells Urine Bacteria Ur Culture Indicated? Vol Urine Centrifuged U Opiates 300ng/mL cut Ur Oxycodone Screen Urine Methadone Screen Ur Barbiturates Screen U Tricyclic Antidepress Ur Phencyclidine Scrn Ur Amphetamines Screen U Methamphetamines Scrn Ur MDMA Scrn (Ecstasy) U Benzodiazepines Scrn Urine Cocaine Screen U Marijuana (THC) Screen Urine Specific [place] Normal Ethyl Alcohol Ur Creatinine Normal Chlamy pneumoniae PCR Adenovirus (PCR) B.parapertussis DNA PCR Coronavirus OC43 (PCR) Coronavirus HKU1 (PCR) Coronavirus 229E (PCR) SARS-CoV-2 (PCR) Coronavirus NL63 (PCR) Human Metapneumovir PCR Influenza Type A (PCR) Influenza Type B (PCR) M. pneumoniae (PCR) Parainfluenza 1 (PCR) Parainfluenza 2 (PCR) Parainfluenza 3 (PCR) Parainfluenza 4 (PCR) RSV (PCR) Entero/Rhino (PCR) Assessment & Plan Assessment and plan (1) Transient ischemic attack: Status: Acute Plan 83 yo F presenting with confusion and word finding difficulties that improved after arrival to the ER. CT head and CTA head/neck were normal aside from chronic microvascular changes. CBC, CMP, troponin, respiratory panel, urine tox and UA were normal. Plan to admit for observation overnight to ensure no repeated occurrences. She is feeling well now. Discussed starting a statin and pt is adamantly opposed. She is already taking ASA daily according to her , 325mg. Will focus management on medical maximization as sx are mostly resolved by the time of interview and she is >4 hours from last known normal. ABCD-2 score of 5 places her at moderate risk of stroke - Admit to observation - Continue ASA 325mg daily. BCD-2 score of 5 she should be offered DAPT for 21 days followed by ASA continuation. Plan for repeat discussion about DAPT in the AM, but at this time she is not interested in starting a new medication - Reiterated lifestyle interventions for management including exercise, dietary modifications/Mediterranean diet, no smoking, minimal ETOH consumption and pt is already in compliance with all of these - Continue to offer high intensity statin, for now pt declines - BP control, continue to trend - Continue cardiac monitoring while admitted due to changes in heart rate. If pt noted to be in A. fib, would reconsider etiology of TIA. - If sx recur, would consider neurology consult
--- NOTE | 2023-06-18 14:55 | PC.NURSE ---
This RNs first interaction with patient was during his discharge.
[2023-06-18] MEDS: IBUPROFEN 400 MG TABLET PO ×3 (15:02→23:09)
[2023-06-18] MEDS: SODIUM CHLORIDE 0.9% FLUSH 10 ML IV (21:43)
[2023-06-19 00:10] VITALS: BP 144/85; PULSE 110; RESP 17; TEMP 36.4; O2SAT 95
--- NOTE | 2023-06-19 00:33 | PC.NURSE ---
Patient is alert and oriented but NIH = 2 due to vision loss (chronic related to macular degeneration) and took 3 try's to state correct month. Breath sounds CTA with RA sat of 94%; on continuous oximetry. HRR w/telemetry reading of SR. Denied nausea. BT present and abdomen is soft. Reports dribbling and some stress incontinence so is wearing a pad but also gets up to void; denied dysuria. Is able to move self in bed and gets up to bathroom with SBA. Is wearing bilateral calf SCD's. Complain of left frontal headache when medicated with scheduled Ibuprofen. Fall risk score is low and patient verbalizes understanding to call for assistance when getting out of bed.
[2023-06-19] MEDS: IBUPROFEN 400 MG TABLET PO ×2 (03:27→06:43)
[2023-06-19 04:00] VITALS: BP 140/102; PULSE 79; RESP 17; TEMP 36.1; O2SAT 96
[2023-06-19 05:56] VITALS: BP 125/66; PULSE 66; RESP 18; TEMP 35.9; O2SAT 93
[2023-06-19 08:00] VITALS: BP 140/70; PULSE 68; RESP 16; TEMP 36.4; O2SAT 95
--- NOTE | 2023-06-19 08:31 | P.DS_ITS ---
History of Present Illness History of Present Illness Date Patient Seen: 06/19/23 Time Patient Seen: 07:45 Date of Onset of Symptoms: 06/18/23 Chief complaint: possible stroke, confused Narrative: Per HPI Johanny is a 83-year-old female with history of TIA many years ago not on statin presenting with confusion and word-finding difficulty earlier this morning. Last known normal was last night before going to bed. Symptoms seem to have improved significantly since arriving at the ER. Johanny notes that she has had this happen once before when she was diagnosed with a TIA. She had previously been counseled to start a statin but she does not believe that this is the right choice for her because she is worried about side effects. She reiterates multiple times that she will not be taking a statin. In the ER, she was noted to have somewhat irregular heart rate intermittently but this was not caught on any EKGs. She denies chest pain, shortness for breath, other cardiac complaints. She denies other medical problems and doesnt take any other medications aside from a myscle relaxer for generalized pain which she states is related to her age. Discharge Providers Provider Date of admission: 06/18/23 12:49 Discharge Date: 06/19/23 Primary care physician: Cherry Moreira MD Discharge provider: Cherry Moreira MD Summary Hospital Course Discharge Diagnosis: TIA Hospital Course: 83 yo F presenting with confusion and word finding difficulties that improved after arrival to the ER. CT head and CTA head/neck were normal aside from chronic microvascular changes. CBC, CMP, troponin, respiratory panel, urine tox and UA were normal. Admitted overnight for monitoring. She is feeling well now. Discussed starting a statin and pt is adamantly opposed. She is already taking ASA daily according to her , 325mg. She declined any new medications and felt well to discharge. Status at Discharge Cognitive/behavioral status at discharge: oriented Functional status at discharge: independent ambulation Overall status at discharge: patient is back to baseline Time Spent with Patient Time spent: Greater than 30 minutes Exam Vital Signs (past 8 hours): - 06/19/23 04:00 06/19/23 05:56 Temperature 97.0 F L 96.6 F L Pulse Rate 79 66 Respiratory Rate 17 18 Blood Pressure 140/102 H 125/66 Pulse Oximetry 96 93 Oxygen Flow Rate 0 0 Oxygen Delivery Method Room Air Oxygen Flow Rate 0 Narrative Exam Narrative: GEN: Healthy elderly appearing female, well-developed, NAD. PSYCH: Good Judgment. AOx3. Normal memory, mood, and affect HEENT: -Head: NC/AT -Eyes: No discharge or redness. Some crusting noted below the right eye -Ears: External ears are normal. -Nose: Normal nares. -Mouth and throat: MMM, uvula midline SKIN: Warm, well perfused. No skin rashes , actinic keratoses noted on the cheeks MSK: Normal strength in arms and legs, symmetric bilaterally EXT: No clubbing, cyanosis, or edema NEURO: Cranial nerves 2-10 intact. Objective Labs 06/18/23 10:20 06/18/23 10:20 Labs: Laboratory Results - last 24 hr 06/18/23 06/18/23 06/18/23 10:20 11:05 11:45 WBC 5.6 RBC 4.48 Hgb 14.3 Hct 42.3 MCV 94.4 MCH 31.9 MCHC 33.8 RDW 13.0 Plt Count 224 Neut % (Auto) 44.2 L Lymph % (Auto) 41.5 H [place] % (Auto) 10.0 Eos % (Auto) 3.3 Baso % (Auto) 1.0 Neut # (Auto) 2500 Lymph # (Auto) 2300 [place] # (Auto) 600 Eos # (Auto) 200 Baso # (Auto) 100 PT 11.1 INR 1.0 APTT 33 Sodium 143 Potassium 3.9 Chloride 107 Carbon Dioxide 23 BUN 17 Creatinine 0.96 Estimated GFR 58 L BUN/Creatinine Ratio 17.7 Glucose 102 Calcium 9.5 Total Bilirubin 0.8 AST 33 ALT 19 Alkaline Phosphatase 91 Total Creatine Kinase 70 Troponin I < 0.012 Total Protein 7.7 Albumin 4.3 Globulin 3.4 Albumin/Globulin Ratio 1.3 Urine Color Yellow Urine Appearance Clear Urine pH 7.5 Ur Specific [place] 1.010 Urine Protein Negative Urine Glucose (UA) Negative Urine Ketones Negative Urine Occult Blood Negative Urine Nitrate Negative Urine Bilirubin Negative Urine Urobilinogen 0.2 Ur Leukocyte Esterase Negative Urine RBC None seen Urine WBC None seen Ur Squamous Epith Cells None seen Urine Bacteria None seen Ur Culture Indicated? Cult not indicated Vol Urine Centrifuged 10ml (spun) U Opiates 300ng/mL cut Negative Ur Oxycodone Screen Negative Urine Methadone Screen Negative Ur Barbiturates Screen Negative U Tricyclic Antidepress Negative Ur Phencyclidine Scrn Negative Ur Amphetamines Screen Negative U Methamphetamines Scrn Negative Ur MDMA Scrn (Ecstasy) Negative U Benzodiazepines Scrn Negative Urine Cocaine Screen Negative U Marijuana (THC) Screen Negative Urine Specific [place] Ethyl Alcohol < 10 Ur Creatinine Chlamy pneumoniae PCR Not detected Adenovirus (PCR) Not detected B.parapertussis DNA PCR Not detected Coronavirus OC43 (PCR) Not detected Coronavirus HKU1 (PCR) Not detected Coronavirus 229E (PCR) Not detected SARS-CoV-2 (PCR) Not detected Coronavirus NL63 (PCR) Not detected Human Metapneumovir PCR Not detected Influenza Type A (PCR) Not detected Influenza Type B (PCR) Not detected M. pneumoniae (PCR) Not detected Parainfluenza 1 (PCR) Not detected Parainfluenza 2 (PCR) Not detected Parainfluenza 3 (PCR) Not detected Parainfluenza 4 (PCR) Not detected RSV (PCR) Not detected Entero/Rhino (PCR) Not detected 06/18/23 11:45 WBC RBC Hgb Hct MCV MCH MCHC RDW Plt Count Neut % (Auto) Lymph % (Auto) [place] % (Auto) Eos % (Auto) Baso % (Auto) Neut # (Auto) Lymph # (Auto) [place] # (Auto) Eos # (Auto) Baso # (Auto) PT INR APTT Sodium Potassium Chloride Carbon Dioxide BUN Creatinine Estimated GFR BUN/Creatinine Ratio Glucose Calcium Total Bilirubin AST ALT Alkaline Phosphatase Total Creatine Kinase Troponin I Total Protein Albumin Globulin Albumin/Globulin Ratio Urine Color Urine Appearance Urine pH Normal Ur Specific [place] Urine Protein Urine Glucose (UA) Urine Ketones Urine Occult Blood Urine Nitrate Urine Bilirubin Urine Urobilinogen Ur Leukocyte Esterase Urine RBC Urine WBC Ur Squamous Epith Cells Urine Bacteria Ur Culture Indicated? Vol Urine Centrifuged U Opiates 300ng/mL cut Ur Oxycodone Screen Urine Methadone Screen Ur Barbiturates Screen U Tricyclic Antidepress Ur Phencyclidine Scrn Ur Amphetamines Screen U Methamphetamines Scrn Ur MDMA Scrn (Ecstasy) U Benzodiazepines Scrn Urine Cocaine Screen U Marijuana (THC) Screen Urine Specific [place] Normal Ethyl Alcohol Ur Creatinine Normal Chlamy pneumoniae PCR Adenovirus (PCR) B.parapertussis DNA PCR Coronavirus OC43 (PCR) Coronavirus HKU1 (PCR) Coronavirus 229E (PCR) SARS-CoV-2 (PCR) Coronavirus NL63 (PCR) Human Metapneumovir PCR Influenza Type A (PCR) Influenza Type B (PCR) M. pneumoniae (PCR) Parainfluenza 1 (PCR) Parainfluenza 2 (PCR) Parainfluenza 3 (PCR) Parainfluenza 4 (PCR) RSV (PCR) Entero/Rhino (PCR) [facility] Medical History Transient ischemic attack Actinic keratoses Gout Stroke (~2017) Measles (~1945) Chicken pox (~1939) Cataracts, bilateral Hemorrhoid Diverticular disease Colon polyps Skin cancer Family History Father History of heart attack Mother History of heart attack Social History household members: significant other Smoking Status: Never smoker alcohol intake: never substance use type: does not use Discharge Assessment & Plan Assessment and Plan Assessment: Transient Ischemic Attack Plan of Treatment: 83 yo F presenting with confusion and word finding difficulties that improved after arrival to the ER. CT head and CTA head/neck were normal aside from chronic microvascular changes. CBC, CMP, troponin, respiratory panel, urine tox and UA were normal. Admitted overnight without recurrence. She is feeling well now. Discussed starting a statin and pt is adamantly opposed. She is already taking ASA daily according to her , 325mg. Will focus management on medical maximization. ABCD-2 score of 5 places her at moderate risk of stroke. - Continue ASA 325mg daily. BCD-2 score of 5 she should be offered DAPT for 21 days followed by ASA continuation. She is not interested in starting a new medication. - Reiterated lifestyle interventions for management including exercise, dietary modifications/Mediterranean diet, no smoking, minimal ETOH consumption and pt is already in compliance with all of these - Continue to offer high intensity statin, for now pt declines - Follow up with PCP in one week Discharge Plan Discharge Plan Patient Disposition: Home Discharge orders & Medications Prescriptions: Continued nystatin 100,000 unit/gram cream 1 applic topical BID Qty: 60 3RF methocarbamol 500 mg tablet 500 mg PO BEDTIME Qty: 90 3RF indomethacin 50 mg capsule 50 mg PO BID PRN (Reason: gout) Qty: 14 11RF Rx Instructions: administer with food or milk betamethasone, augmented 0.05 % cream 1 applic topical DAILY Qty: 45 0RF Rx Instructions: pt reports only using this medication every 2-3 days. Follow up/Referrals: Cherry Moreira MD [Primary Care Provider] - Visit Report/Discharge Packet Instructions: DI for Transient Ischemic Attack Stand Alone Forms: Patient Portal/API, Stroke Signs & Symptoms Discharge Data Primary Care Provider: Cherry Moreira Attending Provider: Cherry Moreira Admit Date/Time: 06/18/23 12:49 Discharges patient from system. Discharge Date/Time: 06/19/23 09:58
--- NOTE | 2023-06-19 11:55 | CM.DANOTE ---
Initial DCP Assessment Note Reviewed EMR and team rounds for pt's medical status. Pt left the building prior to this [employer]IC being able to assess her in person. Plan was to d/c home with spouse, f/u with PCP OP. Payor: Medicare PCP: Dr. Moreira Pt is a 83 year-old F with dubois prior hx of stroke in 2017, has some residual deficits in memory/cognition and difficulty swallowing. She presents to the ED after her spouse noticed that she was having a difficult time dressing herself, had increased confusion, no observable facial droop. Symptoms improved in the ED, CVA was suspected. She adamantly refused the recommendation to begin statin therapy, and feels that she does not do well with them. No d/c recommendations for home assistance. No further DCP needs indicated at this time. Discharge Planning/Care Management Advanced directive, confirm from FAMILY Start: 06/18/23 16:33 Freq: Q24H Status: Discharge Protocol: Document 06/18/23 18:17 AKP (Rec: 06/18/23 18:38 AKP [id number]) Co-signed By Chase Willoughby RN Advance Directive, confirm on record Time 16:30 Person contacted sign. other to bring in Copy received No CM Discharge Assessment Start: 06/19/23 11:54 Freq: Status: Active Protocol: Document 06/19/23 11:54 DPL (Rec: 06/19/23 11:55 DPL [id number]) Discharge Planning Assessment Assigned Dermatology Physician Assistant JAYCE Bentley Advance Directives? Yes Advance Directives on File No History Provided By Medical Record Expected Length of Stay 1 Has Patient been admitted in last 30 No days? Prior Living Arrangements House Household Members significant other Type of transporation used prior to Relies on Others admit Independent with ADL's Yes Is patient alert and oriented? Yes Comment N/A Comment No identified home d/c needs identified at this time. Barriers to Discharge No Discharge Plan Home Transportation Arrangement Family Referrals Initiated None needed Whiteboard Updated in Patient Room with Yes name and ext. # of Dermatology Physician Assistant Review Status In Process Please Provide Date Initial DC 06/19/23 Assessment Was Performed
--- NOTE | 2023-06-19 18:06 | P.HP_ITS ---
History of Present Illness History of Present Illness Date Patient Seen: 06/19/23 Time Patient Seen: 17:15 Date of Onset of Symptoms: 06/19/23 Chief complaint: possible stroke, confused Narrative: Patient was seen this AM and discharged for possible TIA with complete resolution of symptoms. She was feeling well from a neurological standpoint. Her and her partner left hospital and went home. They had oatmeal and went for a walk. In the afternoon they went to the grocery store. As they were paying she felt strange and was lowreed to the ground. She is not sure that she passed out totally as she continued to hear voices. bridge club manager showed up and found her very hypotensive. They noted irregular tachycardia on their monitoring concerning for atrial fibrillation. She did have some abnormal heart rhythms in the ED yesterday and while admitted but we have been unable to capture atrial fibrillation on EKG. She denies any chest pain or palpitations. She feels well from a neurologic standpoint. [facility] Medical History Transient ischemic attack Actinic keratoses Gout Stroke (~2017) Measles (~1945) Chicken pox (~1939) Cataracts, bilateral Hemorrhoid Diverticular disease Colon polyps Skin cancer Family History Father History of heart attack Mother History of heart attack Social History household members: significant other Smoking Status: Never smoker alcohol intake: never substance use type: does not use Meds Home Medications and Allergies Home Medications Medication Instructions Recorded Confirmed Type indomethacin 50 mg capsule 50 mg PO BID PRN gout #14 caps 07/25/22 06/19/23 Rx methocarbamol 500 mg tablet 500 mg PO BEDTIME #90 tabs 02/21/23 06/19/23 Rx nystatin 100,000 unit/gram topical 1 applic topical BID #60 grams 02/21/23 06/19/23 Rx cream betamethasone, augmented 0.05 % 1 applic topical DAILY #45 grams 06/05/23 06/19/23 Rx topical cream Allergies Allergy/AdvReac Type Severity Reaction Status Date / Time codeine [CODEINE] Allergy Intermediate TACHYCARDIA, Verified 06/19/23 14:04 RASH acetaminophen [From PERCOCET] Allergy Unknown CONFUSION Verified 06/19/23 14:04 oxycodone [From PERCOCET] Allergy Unknown CONFUSION Verified 06/19/23 14:04 Sulfa (Sulfonamide Allergy Unknown TACHYCARDIA, Verified 06/19/23 14:04 Antibiotics) RASH [SULFA (SULFONAMIDE ANTIBIOTICS)] morphine [MORPHINE] AdvReac Intermediate TACHYCARDIA, Verified 06/19/23 14:04 RASH Penicillins [PENICILLINS] AdvReac Mild TACHYCARDIA, Verified 06/19/23 14:04 RASH adhesive tape [ADHESIVE TAPE] AdvReac Unknown RASH Verified 06/19/23 14:04 Review of Systems Review of Systems Narrative: as per HPI Exam Vital Signs (past 8 hours): Oxygen Delivery Method Room Air Oxygen Flow Rate 0 Narrative Exam Narrative: GEN: Healthy elderly appearing female, well-developed, NAD. PSYCH: Good Judgment. AOx3. Normal memory, mood, and affect HEENT: -Head: NC/AT -Eyes: No discharge or redness. Some crusting noted below the right eye -Ears: External ears are normal. -Nose: Normal nares. -Mouth and throat: MMM, uvula midline HEART: abnormal rhythm present on exam SKIN: Warm, well perfused. No skin rashes , actinic keratoses noted on the cheeks MSK: Normal strength in arms and legs, symmetric bilaterally EXT: No clubbing, cyanosis, or edema NEURO: Cranial nerves 2-10 intact. Objective Labs 06/18/23 10:20 06/18/23 10:20 Assessment & Plan Assessment and plan (1) Syncope: Qualifiers: Syncope type: unspecified Qualified Code(s): R55 - Syncope and collapse Status: Acute (2) Abnormal heart rhythm: Qualifiers: Arrhythmia type: atrial fibrillation Atrial fibrillation type: u nspecified Qualified Code(s): I48.91 - Unspecified atrial fibrillation Status: Acute Plan 83 yo F who was discharged this AM after being admitted for one night monitoring following a TIA now coming in with syncopal event with abnormal heart rhythm concerning for atrial fibrillation. CBC, CMP, and troponin unremarkable. Chest xray wnl. Cardiology consulted from ED recommending admission for echo, rate control and anticoagulation. Echocardiogram showing atrial fibrillation with heart rates between 73-124. EF 65-70%. Diastolic function not accurately assessed 2/2 to atrial fibrillation. -will start anticoagulation with apixaban 2.5 mg BID, low dose 2/2 to age >80 -will start verapamil 40 mg TID -telemetry monitoring -Full code Dispo: suspect discharge in 2-3 days depending on rate control and up titration of verapamil
== END 2023-06-19 09:58 | disposition home or self-care (01) ==
LOC: ED 12:26 → AC 12:38
PROVIDERS: Admitting Provider Family Medicine; Emergency Provider Emergency Medicine; PCP Student in an Organized Health Care Education/Training Program; Referring Provider Emergency Medicine; Visit Provider Student in an Organized Health Care Education/Training Program
DX: G45.9 Transient cerebral ischemic attack, unspecified (principal); Z86.73 Personal history of transient ischemic attack (TIA), and cerebral infarction without residual deficits; R29.702 NIHSS score 2; I48.91 Unspecified atrial fibrillation; Z11.52 Encounter for screening for COVID-19
CPT/HCPCS: 36415; 70450; 70496; 70498; 80053; 80305; 80320; 81001; 81003; 82550; 82962; 84484; 85025; 85610; 85730; 87633; 93005; 99284; G0378; Q9967

== ENCOUNTER 2023-06-19 13:54 | Inpatient (IN) | payer MEDICARE, SELFPAY ==
[2023-06-18 16:25] VITALS: BMI 29.2
[2023-06-19] VITALS (16 sets, daily range): BP systolic 116–169; BP diastolic 61–83; PULSE 65–121; RESP 16–24; TEMP 35.6–36.9; O2SAT 94–99; BMI 29.2
--- NOTE | 2023-06-19 14:09 | DI.RAD.S_ITS ---
PROCEDURE: XR CHEST 1V INDICATIONS: syncope TECHNIQUE: One view of the chest was acquired. COMPARISON: None. FINDINGS: Surgical changes and devices: None. Lungs and pleura: Lungs are clear. No pleural effusions or pneumothorax. Mediastinum: Mediastinal contours appear normal. Heart size is normal. Bones and chest wall: No suspicious bony lesions. Overlying soft tissues appear unremarkable. IMPRESSION: No acute cardiopulmonary abnormality is seen. Dictated by: Patt Dinero MD, PhD on 06/19/2023 at 14:36 Approved by: Patt Dinero MD, PhD on 06/19/2023 at 14:36
--- NOTE | 2023-06-19 14:29 | ED.SYNCOPE ---
HPI - Syncope General Chief Complaint: Syncope Stated Complaint: Syncope with Orthostatics Time Seen by Provider: 06/19/23 14:06 Source: EMS Mode of arrival: EMS History of Present Illness HPI narrative: Patient 83-year-old female presents today with a syncopal episode. I saw and evaluated her myself yesterday history she would concerning signs for possible TIA she was admitted overnight discharge this morning. She was feeling well her neuro has been live on a Sin they decided to go to the grocery store the grocery store she felt very weak lightheaded and what was lower to the ground she did not pass out. EMS reports that she was hypotensive when they arrived with a blood pressure in the 60s. They found irregular tachycardia on the monitor concerning for atrial fibrillation. This is actually noted yesterday in the ED as well but she quickly went back into sinus rhythm. Again she is in sinus rhythm in the emergency department. She has no numbness tingling or weakness. She denies absolutely any chest pain fluttering or palpitations. She otherwise is feeling well. Related Data Previous Rx's Medication Instructions Recorded indomethacin 50 mg capsule 50 mg PO BID PRN gout #14 caps 07/25/22 methocarbamol 500 mg tablet 500 mg PO BEDTIME #90 tabs 02/21/23 nystatin 100,000 unit/gram topical 1 applic topical BID #60 grams 02/21/23 cream betamethasone, augmented 0.05 % 1 applic topical DAILY #45 grams 06/05/23 topical cream Allergies Allergy/AdvReac Type Severity Reaction Status Date / Time codeine [CODEINE] Allergy Intermediate TACHYCARDIA, Verified 06/19/23 14:04 RASH acetaminophen [From PERCOCET] Allergy Unknown CONFUSION Verified 06/19/23 14:04 oxycodone [From PERCOCET] Allergy Unknown CONFUSION Verified 06/19/23 14:04 Sulfa (Sulfonamide Allergy Unknown TACHYCARDIA, Verified 06/19/23 14:04 Antibiotics) RASH [SULFA (SULFONAMIDE ANTIBIOTICS)] morphine [MORPHINE] AdvReac Intermediate TACHYCARDIA, Verified 06/19/23 14:04 RASH Penicillins [PENICILLINS] AdvReac Mild TACHYCARDIA, Verified 06/19/23 14:04 RASH adhesive tape [ADHESIVE TAPE] AdvReac Unknown RASH Verified 06/19/23 14:04 Patient History Medical History Transient ischemic attack Actinic keratoses Gout Stroke (~2017) Measles (~1945) Chicken pox (~1939) Cataracts, bilateral Hemorrhoid Diverticular disease Colon polyps Skin cancer Family History Father History of heart attack Mother History of heart attack Social History household members: significant other Smoking Status: Never smoker alcohol intake: never substance use type: does not use Smoking Status: Never smoker alcohol intake frequency: holidays/special occasions only Substance Use Type: does not use Exam Initial Vital Signs Initial Vital Signs: Vital Signs Pulse Rate 121 H 06/19/23 13:59 Pulse Oximetry 97 06/19/23 13:59 Oxygen Delivery Method Nasal Cannula 06/19/23 13:59 Oxygen Flow Rate 3 06/19/23 13:59 GENERAL: Alert pleasant well-appearing 83 year female and in no acute distress. HEENT: Head atraumatic,EOMI, pupils reactive, face symmetric, moist mucous membranes CARDIOVASCULAR: Regular rate and rhythm without murmurs, rubs or gallops. RESPIRATORY: Breath sounds equal bilaterally, no wheezes rales or rhonchi. ABDOMEN: Soft, nontender. Normoactive bowel sounds all 4 quadrants. No guarding or rebound. EXTREMITIES: Normal range of motion, no clubbing or edema. Neurovascularly intact NEUROLOGICAL: Alert and oriented x4.Normal gait and speech. Cranial nerves II through XII grossly intact. Good [id number], good [id number], strength equal bilaterally, no dysarthria or aphasia, sensation in tact to soft touch bilaterally, no visual changes, no facial droop SKIN: Warm, dry, no laceration, no petechiae, no rashes or lesions. Course Orders Ordered: ED Orders 06/19/23 14:00 Complete Blood Count AUTO DIFF Stat Comprehensive Metabolic Panel Stat Lipase Stat Troponin & CK Cardiac Panel Stat 06/19/23 14:09 XR chest 1V Stat 06/19/23 14:33 EKG-12 Lead Stat Apixaban (Apixaban 5 Mg Tablet) 5 mg PO BID RAVINDER Naloxone HCl (Naloxone 0.4 Mg/Ml Vial) 0.2 mg IV Q2MIN PRN PRN Reason: Opiate Reversal Verapamil HCl (Verapamil 80 Mg Tablet) 40 mg PO TID [facility] Last Admin: 06/19/23 18:00 Dose: 40 mg Documented By: BAILEY Discontinued Medications Apixaban (Apixaban 5 Mg Tablet) 2.5 mg PO BID [facility] Sodium Chloride (Normal Saline 0.9%) 1,000 mls @ 150 mls/hr IV CONT RAVINDER Last Infusion: 06/19/23 16:51 Dose: 0 mls/hr Documented By: Infusion: 06/19/23 16:51 Dose: 0 mls/hr Documented By: Admin: 06/19/23 15:17 Dose: 150 mls/hr Documented By: RB Metoprolol Tartrate (Metoprolol Ir 25 Mg Tablet) 25 mg PO Q6HR [facility] Vital Signs Vital signs: Vital Signs - 8 hr 06/19/23 13:59 06/19/23 14:00 06/19/23 14:00 Temperature Pulse Rate 121 H 120 H Respiratory Rate Blood Pressure 153/74 H Pulse Oximetry 97 98 Oxygen Delivery Method Nasal Cannula Nasal Cannula Oxygen Flow Rate 3 3 06/19/23 14:02 06/19/23 14:15 06/19/23 14:30 Temperature 98.4 F Pulse Rate 118 H 94 H 68 Respiratory Rate 16 23 22 Blood Pressure 153/74 H 154/78 H 141/68 H Pulse Oximetry 98 98 96 Oxygen Delivery Method Room Air Room Air Room Air Oxygen Flow Rate 06/19/23 14:45 06/19/23 15:00 06/19/23 15:15 Temperature Pulse Rate 67 67 65 Respiratory Rate 19 22 21 Blood Pressure 153/65 H 162/70 H 146/67 H Pulse Oximetry 98 99 99 Oxygen Delivery Method Room Air Room Air Room Air Oxygen Flow Rate 06/19/23 15:30 06/19/23 15:45 06/19/23 16:00 Temperature Pulse Rate 77 66 69 Respiratory Rate 19 22 21 Blood Pressure 169/69 H 149/65 H 163/69 H Pulse Oximetry 99 98 98 Oxygen Delivery Method Room Air Room Air Room Air Oxygen Flow Rate 06/19/23 16:30 Temperature Pulse Rate 116 H Respiratory Rate 24 Blood Pressure 162/83 H Pulse Oximetry 99 Oxygen Delivery Method Room Air Oxygen Flow Rate MDM - Syncope Lab Data 06/19/23 14:00 06/19/23 14:00 Labs: Lab Results 02/22/24 Range/Units 14:00 WBC 6.6 (4.5-11.0) X10^3/uL RBC 4.35 (4.0-5.2) X10^6/uL Hgb 13.8 (12.0-16.0) g/dL Hct 41.3 (36-46) % MCV 95.0 (80-100) fL MCH 31.8 (26-34) PG MCHC 33.4 (30-36) % RDW 13.2 (11.6-14.8) % Plt Count 237 (150-400) X10^3/uL Neut % (Auto) 52.3 (50-75) % Lymph % (Auto) 34.7 (25-40) % [place] % (Auto) 10.2 (3-14) % Eos % (Auto) 1.9 L (2-4) % Baso % (Auto) 0.9 (0-2) % Neut # (Auto) 3500 (4556-6609) /uL Lymph # (Auto) 2300 (9455-4009) /uL [place] # (Auto) 700 (0-900) /uL Eos # (Auto) 100 (0-450) /uL Baso # (Auto) 100 (0-100) /uL Sodium 135 L (137-145) mmol/L Potassium 4.1 (3.4-5.1) mmol/L Chloride 105 (98-107) mmol/L Carbon Dioxide 22 (22-32) mmol/L BUN 18 H (7-17) mg/dL Creatinine 1.02 (0.52-1.04) mg/dL Estimated GFR 54 L (>60) mL/min BUN/Creatinine Ratio 17.6 (6-22) Glucose 94 (80-110) mg/dL Calcium 9.4 (8.4-10.2) mg/dL Total Bilirubin 0.8 (0.2-1.3) mg/dL AST 38 H (14-36) IU/L ALT 18 (<35) IU/L Alkaline Phosphatase 81 (38-126) U/L Total Creatine Kinase 78 (30-135) U/L Troponin I < 0.012 (0.01-0.034) ng/mL Total Protein 7.5 (6.3-8.2) g/dL Albumin 4.1 (3.5-5.0) g/dL Globulin 3.4 (1.7-4.1) g/dL Albumin/Globulin Ratio 1.2 (1.0-2.8) Lipase 113 (23-300) U/L Imaging Data Chest x-ray: Radiologist's Impression: PROCEDURE: XR CHEST 1V INDICATIONS: syncope TECHNIQUE: One view of the chest was acquired. COMPARISON: None. FINDINGS: Surgical changes and devices: None. Lungs and pleura: Lungs are clear. No pleural effusions or pneumothorax. Mediastinum: Mediastinal contours appear normal. Heart size is normal. Bones and chest wall: No suspicious bony lesions. Overlying soft tissues appear unremarkable. IMPRESSION: No acute cardiopulmonary abnormality is seen. Dictated by: Patt Dinero MD, PhD on 06/19/2023 at 14:3 ECG Data Interpretation: EKG 1. Sinus rhythm rate [address] changes EKG 2. Atrial fibrillation rate 101 MDM Narrative Medical decision making narrative: Patient 83-year-old female presents today with near syncopal episode. She was admitted yesterday with TIA like symptoms. He was noted yesterday that her heart rate was irregular but frequently in sinus rhythm. Today she is definitely having episodes of atrial fibrillation not necessarily with RVR. She does not stay sustained in it. She actually still is going in and out of it. She is completely asymptomatic without any palpitations or dizziness. She was orthostatic for EMS. However EMS also had her in rates of AFib Blood work has been reviewed no clinical significant changes. She Chest x-ray does not show any abnormality today EKG has been reviewed and shows atrial fibrillation 1630 I did discuss case with Dr. Solorio on-call cardiology who recommended monitoring rate control echo Definitely concern for TIA if she has been in and out of atrial fibrillation. Dr. Moreira accepts patient. Discharge Plan Departure Patient Disposition: Admitted as Observation Clinical Impression: Atrial fibrillation, new onset, Syncope Admit Date/Time: 06/19/23 16:33 Admit Provider: Cherry Moreira
[2023-06-19 14:34] LABS: Add Manual Diff / Slide Review NO; Basophils Absolute Auto 100 /uL (0-100); Basophils Percent Auto 0.9 % (0-2); Eosinophils Absolute Auto 100 /uL (0-450); Eosinophils Percent Auto 1.9 % (2-4); Hematocrit 41.3 % (36-46); Hemoglobin 13.8 g/dL (12.0-16.0); Lymphocytes Absolute Auto 2300 /uL (1100-4500); Lymphocytes Percent Auto 34.7 % (25-40); Mean Corpuscular HGB Conc 33.4 % (30-36); Mean Corpuscular Hemoglobin 31.8 PG (26-34); Monocytes Absolute Auto 700 /uL (0-900); Monocytes Percent Auto 10.2 % (3-14); Neutrophils Absolute Auto 3500 /uL (1500-7000); Neutrophils Percent Auto 52.3 % (50-75); Platelet Count 237 X10^3/uL (150-400); Red Blood Cell Count 4.35 X10^6/uL (4.0-5.2); Red Cell Distribution Width 13.2 % (11.6-14.8); White Blood Cell Count 6.6 X10^3/uL (4.5-11.0)
[2023-06-19 14:40] LABS: Alanine Aminotransferase 18 IU/L (<35); Albumin 4.1 g/dL (3.5-5.0); Albumin Globulin Ratio 1.2 (1.0-2.8); Alkaline Phosphatase 81 U/L (38-126); Aspartate Aminotransferase 38 IU/L (14-36); BUN Creatinine Ratio 17.6 (6-22); Bilirubin Total 0.8 mg/dL (0.2-1.3); Blood Urea Nitrogen 18 mg/dL (7-17); Calcium 9.4 mg/dL (8.4-10.2); Carbon Dioxide 22 mmol/L (22-32); Chloride 105 mmol/L (98-107); Creatine Kinase 78 U/L (30-135); Estimated Glomerular Filt Rate 54 mL/min (>60); Globulin 3.4 g/dL (1.7-4.1); Glucose 94 mg/dL (80-110); HEMOLYSIS 17 (0-50); Lipase 113 U/L (23-300); Potassium 4.1 mmol/L (3.4-5.1); Sodium 135 mmol/L (137-145); Total Protein 7.5 g/dL (6.3-8.2)
[2023-06-19 14:51] LABS: Troponin I < 0.012 ng/mL (0.01-0.034)
[2023-06-19] MEDS: SODIUM CHLORIDE 0.9% 1,000 ML 150 ML IV (15:17)
--- NOTE | 2023-06-19 16:52 | DI.ECHO.S_ITS ---
[place] [facility]---------[facility] +---------+ : : [address] : : : : [id number] : : : : Phone: [phone]+ Echocardiogram Report + + :Name: SNEHA RAMÍREZ I Study Date: 06/19/2023 Height: 62 in : :[facility] ReadingLocation: Weight: 160 lb: : Gender: Female BSA: 1.7 m2 : :: 1940 Age: 83 yrs : :Reason For Study: ATRIAL FIBRILLATION : :Ordering Physician: HEENA, : :JOSE Performed By: Kenyon Mahmood : :Referring: JOSE NAIK : + + Interpretation Summary The patient was in atrial fibrillation with heart rates between 73-124 bpm during the exam. The ejection fraction is estimated to be 65-70%. Diastolic function could not be accurately assessed due to atrial fibrillation. The left atrium is mildly dilated. The right ventricle is borderline dilated. The right ventricular systolic function is normal. There is trace aortic regurgitation. There is mild tricuspid regurgitation. The right ventricular systolic pressure is estimated to be at least 44 mmHg based on an estimated right atrial pressure of 3 mm Hg. The ascending aorta is mildly enlarged, 3.8 cm. Procedure: A two-dimensional transthoracic echocardiogram with color flow and Doppler was performed. The study quality was technically adequate. There is no prior echocardiogram noted for this patient. The patient was in atrial fibrillation with heart rates between 73-124 bpm during the exam. Left Ventricle: The left ventricle is normal in size and wall thickness. The ejection fraction is estimated to be 65-70%. Diastolic function could not be accurately assessed due to atrial fibrillation. Right Ventricle: The right ventricle is borderline dilated. The right ventricular systolic function is normal. Atria: The left atrium is mildly dilated. Right atrial size is normal. Mitral Valve: There is moderate mitral annular calcification. There is no mitral valve stenosis. There is trace mitral regurgitation. Aortic Valve: The aortic valve is moderately calcified. There is no aortic valve stenosis. There is trace aortic regurgitation. Tricuspid Valve: The tricuspid valve is normal in structure and function. There is no tricuspid stenosis. There is mild tricuspid regurgitation. The right ventricular systolic pressure is estimated to be at least 44 mmHg based on an estimated right atrial pressure of 3 mm Hg. Pulmonic Valve: The pulmonic valve is not well visualized. There is no pulmonic valvular stenosis. There is no pulmonic valvular regurgitation. Great Vessels: The aortic root is normal size. The ascending aorta is mildly enlarged. The IVC is of normal diameter and collapses greater than 50% with a sniff. This suggests a low right atrial pressure of 3 mm Hg. Pericardium/ Pleura There is no pericardial effusion. There is no pleural effusion. MMode/2D Measurements & Calculations LVIDd: 4.0 cm LVOT diam: 1.8 cm LVIDs: 2.5 cm Ao root diam: 3.4 cm FS: 36.3 % asc Aorta Diam: 3.8 cm IVSd: 0.91 cm LVPWd: 0.87 cm LV vasquez. diameter/BSA (cm/m^2): 2.3 LV sys. diameter/BSA (cm/m^2): 1.5 LA A2 area: 20.0 cm2 RA long axis: 4.5 cm LA A4 area: 20.7 cm2 RA area: 16.6 cm2 LA length (vol): 6.2 cm RA vol: 52.7 ml LA vol: 57.0 ml RA : 30.3 ml/m2 LA vol index: 32.8 ml/m2 IVC diam: 1.4 cm RVD1 (basal): 4.2 cm RVD2 (mid): 3.6 cm Doppler Measurements & Calculations Ao V2 max: 154.2 cm/sec LVOT Max Trey: 117.5 cm/sec Ao V2 mean: 108.1 cm/sec LV V1 max P.5 mmHg Ao max P.5 mmHg LV V1 VTI: 24.8 cm Ao mean P.4 mmHg ASMUEL(I,D): 1.9 cm2 Ao V2 VTI: 33.5 cm SAMUEL(V,D): 1.9 cm2 sev ratio: 0.74 SAMUEL indexed to BSA (cm^2/m^2): 1.1 MV E max trey: 89.4 cm/sec TR max trey: 308.7 cm/sec MV A max trey: 134.6 cm/sec TR max P.2 mmHg MV E/A: 0.66 PA V2 max: 101.2 cm/sec MV dec time: 0.27 sec PA V2 mean: 69.3 cm/sec PA mean P.2 mmHg PA pr(Accel): 47.0 mmHg SVLVOT): 62.9 ml Reading Physician:05:45 PM
--- NOTE | 2023-06-19 17:07 | PC.NURSE ---
Day shift: In room at approx 1700 from ED. Went to bathroom and has no complaints. Echo being done at this time. Pt A&Ox4 and able to walk and talk. Spouse in room for support. Oriented to room and call light. Call light in reach. Agrees to not get OOB w/o help from staff.
[2023-06-19] MEDS: VERAPAMIL 80 MG TABLET 40 MG PO ×2 (18:00→20:23)
[2023-06-19] MEDS: APIXABAN 5 MG TABLET PO (20:24)
[2023-06-20] VITALS: BP 116/74; PULSE 82; RESP 17; TEMP 36.1; O2SAT 95
[2023-06-20 04:00] VITALS: BP 113/57; PULSE 71; RESP 16; TEMP 36.6; O2SAT 97
[2023-06-20 08:28] VITALS: BP 152/80; PULSE 74
[2023-06-20] MEDS: APIXABAN 5 MG TABLET PO (08:28)
[2023-06-20] MEDS: VERAPAMIL 80 MG TABLET 40 MG PO (08:28)
[2023-06-20 08:32] VITALS: BP 152/80; PULSE 74; RESP 18; TEMP 36.1; O2SAT 95
[2023-06-20 09:11] VITALS: BP 127/70; PULSE 82
--- NOTE | 2023-06-20 09:20 | CM.DANOTE ---
Initial DCP Assessment Note Reviewed EMR and team rounds for status updates. Met with pt at bedside to introduce self and role in person, explained role. Pt was discharged and readmitted the same day yesterday, was readmitted for the same syncopal/confusion issues that she had during her last admission. She resides in her own home with her , is independent at baseline, does not drive due to macular degeneration. This admission is anticipated to be greater than 2-midnights, per PCP. Payor: Medicare PCP: Dr. Freitas Pt is a 83 year-old F readmitted after she discharged yesterday, went to the grocery store, and became syncopal while checking out, was helped to the floor, and EMS was called. EMS found her to be hypotensive and in Afib. Pt was brought to the ED, was confirmed to be in Afib, hypotensive. She was admitted for further eval and tx. Goal is to improve rate control and titration of verapamil. DCP will continue to follow and assist with any evolving d/c recommendations and needs. Discharge Planning/Care Management CM Discharge Assessment Start: 06/20/23 09:08 Freq: Status: Active Protocol: Document 06/20/23 09:08 DPL (Rec: 06/20/23 09:19 DPL [id number]) Discharge Planning Assessment Assigned [employer] JAYCE Bentley Advance Directives? Yes Advance Directives on File No History Provided By Medical Record Expected Length of Stay 2 Has Patient been admitted in last 30 Yes days? Comment Pt was admitted on 06/18/23-, then readmitted the same night for same issues. Prior Living Arrangements House Household Members significant other Type of transporation used prior to Relies on Others admit Independent with ADL's Yes Is patient alert and oriented? Yes Caregiver for Another No Comment N/A Comment None Comment No anticipated home d/c needs identified at this time. Barriers to Discharge No Discharge Plan Home Transportation Arrangement Family Referrals Initiated None needed Whiteboard Updated in Patient Room with Yes name and ext. # of [employer] Review Status In Process Please Provide Date Initial DC 06/20/23 Assessment Was Performed
--- NOTE | 2023-06-20 12:15 | PM.DS.1 ---
History of Present Illness History of Present Illness Date Patient Seen: 06/20/23 Time Patient Seen: 12:30 Chief complaint: Syncope with Orthostatics Narrative: From [facility] Patient was seen this AM and discharged for possible TIA with complete resolution of symptoms. She was feeling well from a neurological standpoint. Her and her partner left hospital and went home. They had oatmeal and went for a walk. In the afternoon they went to the grocery store. As they were paying she felt strange and was lowreed to the ground. She is not sure that she passed out totally as she continued to hear voices. bookkeeping manager showed up and found her very hypotensive. They noted irregular tachycardia on their monitoring concerning for atrial fibrillation. She did have some abnormal heart rhythms in the ED yesterday and while admitted but we have been unable to capture atrial fibrillation on EKG. She denies any chest pain or palpitations. She feels well from a neurologic standpoint. Discharge Providers Provider Date of admission: 06/19/23 16:33 Discharge Date: 06/20/23 Primary care physician: Cherry Moreira MD Discharge provider: Cherry Moreira MD Summary Hospital Course Discharge Diagnosis: Atrial fibrilliation Hospital Course: Patient was started on anticoagulation with apixaban 2.5mg BID and verapamil 40 mg TID. She reports massive improvement in symptoms. Telemetry monitoring with sinus rhythm. Status at Discharge Cognitive/behavioral status at discharge: oriented Functional status at discharge: independent ambulation Overall status at discharge: patient is back to baseline Time Spent with Patient Time spent: Greater than 30 minutes Exam Vital Signs (past 8 hours): - 06/20/23 08:28 06/20/23 08:32 06/20/23 09:11 Temperature 97 F L Pulse Rate 74 74 82 Respiratory Rate 18 Blood Pressure 152/80 H 152/80 H 127/70 Pulse Oximetry 95 Oxygen Flow Rate 0 Oxygen Delivery Method Room Air Oxygen Flow Rate 0 Narrative Exam Narrative: GEN: Healthy elderly appearing female, well-developed, NAD. PSYCH: Good Judgment. AOx3. Normal memory, mood, and affect HEENT: -Head: NC/AT -Eyes: No discharge or redness. Some crusting noted below the right eye -Ears: External ears are normal. -Nose: Normal nares. -Mouth and throat: MMM, uvula midline HEART: regular rate and rhythm SKIN: Warm, well perfused. No skin rashes , actinic keratoses noted on the cheeks MSK: Normal strength in arms and legs, symmetric bilaterally EXT: No clubbing, cyanosis, or edema NEURO: Cranial nerves 2-10 intact. Objective Labs 06/19/23 14:00 06/19/23 14:00 Labs: Laboratory Results - last 24 hr 06/19/23 14:00 WBC 6.6 RBC 4.35 Hgb 13.8 Hct 41.3 MCV 95.0 MCH 31.8 MCHC 33.4 RDW 13.2 Plt Count 237 Neut % (Auto) 52.3 Lymph % (Auto) 34.7 [place] % (Auto) 10.2 Eos % (Auto) 1.9 L Baso % (Auto) 0.9 Neut # (Auto) 3500 Lymph # (Auto) 2300 [place] # (Auto) 700 Eos # (Auto) 100 Baso # (Auto) 100 Sodium 135 L Potassium 4.1 Chloride 105 Carbon Dioxide 22 BUN 18 H Creatinine 1.02 Estimated GFR 54 L BUN/Creatinine Ratio 17.6 Glucose 94 Calcium 9.4 Total Bilirubin 0.8 AST 38 H ALT 18 Alkaline Phosphatase 81 Total Creatine Kinase 78 Troponin I < 0.012 Total Protein 7.5 Albumin 4.1 Globulin 3.4 Albumin/Globulin Ratio 1.2 Lipase 113 [facility] Medical History Transient ischemic attack Actinic keratoses Gout Stroke (~2017) Measles (~1945) Chicken pox (~1939) Cataracts, bilateral Hemorrhoid Diverticular disease Colon polyps Skin cancer Family History Father History of heart attack Mother History of heart attack Social History household members: significant other Smoking Status: Never smoker alcohol intake: never substance use type: does not use Discharge Assessment & Plan Assessment and Plan Assessment: new onset atrial fibrillation Plan of Treatment: 83 yo F with syncopal event and abnormal heart rhythm concerning for atrial fibrillation. CBC, CMP, and troponin unremarkable. Chest xray wnl. Cardiology consulted from ED recommending admission for echo, rate control and anticoagulation. Echocardiogram showing atrial fibrillation with heart rates between 73-124. EF 65-70%. Diastolic function not accurately assessed 2/2 to atrial fibrillation. -Improved overnight with verapamil, patient with excellent improvement in symptoms -discharge with script for apixaban 2.5 mg BID, low dose 2/2 to age >80, verapamil 40 mg TID -outpatient referral for cardiology -recommend discontinuation of ASA until appointment with cardiology -message sent to Dr. Segal regarding outpatient lipoma removal -follow up with PCP clinic 06/25 at 11:30am Discharge Plan Discharge Plan Patient Disposition: Home Discharge orders & Medications Prescriptions: New apixaban 2.5 mg tablet 2.5 mg PO BID 90 Days Qty: 180 4RF verapamil 80 mg Tablet 40 mg PO TID 90 Days Qty: 135 4RF Continued nystatin 100,000 unit/gram cream 1 applic topical BID Qty: 60 3RF methocarbamol 500 mg tablet 500 mg PO BEDTIME Qty: 90 3RF betamethasone, augmented 0.05 % cream 1 applic topical DAILY Qty: 45 0RF Rx Instructions: pt reports only using this medication every 2-3 days. Discontinued indomethacin 50 mg capsule 50 mg PO BID PRN (Reason: gout) Qty: 14 11RF Rx Instructions: administer with food or milk No Action verapamil 40 mg tablet 40 mg PO TID Qty: 90 4RF Follow up/Referrals: Cherry Moreira MD [Primary Care Provider] - Visit Report/Discharge Packet Instructions: DI for Atrial Fibrillation, Verapamil, Apixaban Stand Alone Forms: Patient Portal/API, Stroke Signs & Symptoms Discharge Data Primary Care Provider: Cherry Moreira Attending Provider: Cherry Moreira Admit Date/Time: 06/19/23 16:33 Discharges patient from system. Discharge Date/Time: 06/20/23 13:15
== END 2023-06-20 13:15 | disposition home or self-care (01) | DRG 309 ==
LOC: ED 16:23 → AC 16:57
PROVIDERS: Admitting Provider Student in an Organized Health Care Education/Training Program; Emergency Provider Emergency Medicine; PCP Student in an Organized Health Care Education/Training Program; Referring Provider Emergency Medicine; Visit Provider Student in an Organized Health Care Education/Training Program
DX: I48.91 Unspecified atrial fibrillation (principal); G45.9 Transient cerebral ischemic attack, unspecified; R55 Syncope and collapse; Z86.73 Personal history of transient ischemic attack (TIA), and cerebral infarction without residual deficits; R29.702 NIHSS score 2; Z11.52 Encounter for screening for COVID-19
CPT/HCPCS: 36415; 70450; 70496; 70498; 71045; 80053; 80305; 80320; 81001; 81003; 82550; 82962; 83690; 84484; 85025; 85610; 85730; 87633; 93005; 93306; 99284; 99285; G0378; Q9967

== ENCOUNTER → 2023-06-25 13:14 | Outpatient (CLI) | payer MEDICARE, SELFPAY ==
[2023-06-18 16:25] VITALS: BMI 29.2
--- NOTE | 2023-06-25 13:18 | DI.MG.S_ITS ---
BILATERAL DIGITAL SCREENING MAMMOGRAM 3D/2D WITH CAD: 06/25/2023 CLINICAL: Routine screening. Comparison is made to exams dated: 06/11/2022 mammogram, 05/22/2020 mammogram, and 05/24/2021 mammogram - [facility]. There are scattered areas of fibroglandular density in both breasts (category b / 25%-50% glandular tissue). Current study was also evaluated with a Computer Aided Detection (CAD) system. There are benign vascular calcifications in both breasts. No significant masses, calcifications, or other findings are seen in either breast. There has been no significant interval change. IMPRESSION: BENIGN There is no mammographic evidence of malignancy. A 1 year screening mammogram is recommended. This exam was interpreted at Station ID: [id number]. NOTE: For mammograms, a report in lay terms will be sent to the patient. Approximately 15% of breast malignancies will not be visualized mammographically. In the management of a palpable breast mass, a negative mammogram must not discourage biopsy of a clinically suspicious lesion. Electronically Signed By: Angelica biswas/steve:06/25/2023 13:50:57 letter sent: Normal Exam ACR BI-RADS Category 2: Benign Finding(s) [id number]
== END ==
PROVIDERS: PCP Student in an Organized Health Care Education/Training Program; Referring Provider Student in an Organized Health Care Education/Training Program; Visit Provider Student in an Organized Health Care Education/Training Program
DX: Z12.31 Encounter for screening mammogram for malignant neoplasm of breast (principal); R92.323 Mammographic fibroglandular density, bilateral breasts
CPT/HCPCS: 77063; 77067

== ENCOUNTER → 2023-09-08 08:09 | Outpatient (CLI) | payer MEDICARE, SELFPAY ==
[2023-06-18 16:25] VITALS: BMI 29.2
[2023-09-08 09:11] LABS: Add Manual Diff / Slide Review NO; Basophils Absolute Auto 100 /uL (0-100); Eosinophils Absolute Auto 300 /uL (0-450); Eosinophils Percent Auto 4.4 % (2-4); Hematocrit 40.9 % (36-46); Hemoglobin 13.8 g/dL (12.0-16.0); Lymphocytes Absolute Auto 2000 /uL (1100-4500); Lymphocytes Percent Auto 34.1 % (25-40); Mean Corpuscular HGB Conc 33.6 % (30-36); Mean Corpuscular Hemoglobin 31.5 PG (26-34); Mean Corpuscular Volume 93.7 fL (80-100); Monocytes Absolute Auto 600 /uL (0-900); Monocytes Percent Auto 10.5 % (3-14); Neutrophils Absolute Auto 2900 /uL (1500-7000); Platelet Count 203 X10^3/uL (150-400); Red Blood Cell Count 4.37 X10^6/uL (4.0-5.2); Red Cell Distribution Width 12.8 % (11.6-14.8); White Blood Cell Count 5.8 X10^3/uL (4.5-11.0)
[2023-09-08 09:29] LABS: Alanine Aminotransferase 19 IU/L (<35); Albumin 4.3 g/dL (3.5-5.0); Albumin Globulin Ratio 1.3 (1.0-2.8); Alkaline Phosphatase 98 U/L (38-126); Aspartate Aminotransferase 33 IU/L (14-36); BUN Creatinine Ratio 23.5 (6-22); Bilirubin Total 0.7 mg/dL (0.2-1.3); Blood Urea Nitrogen 20 mg/dL (7-17); Calcium 9.6 mg/dL (8.4-10.2); Carbon Dioxide 29 mmol/L (22-32); Chloride 107 mmol/L (98-107); Estimated Glomerular Filt Rate > 60 mL/min (>60); Globulin 3.4 g/dL (1.7-4.1); Glucose 91 mg/dL (80-110); HEMOLYSIS < 15 (0-50); Potassium 3.9 mmol/L (3.4-5.1); Sodium 140 mmol/L (137-145); Total Protein 7.7 g/dL (6.3-8.2); Uric Acid 6.5 mg/dL (2.5-6.2)
== END ==
PROVIDERS: PCP Student in an Organized Health Care Education/Training Program; Referring Provider Family Medicine; Visit Provider Family Medicine
DX: M10.9 Gout, unspecified (principal); Z79.899 Other long term (current) drug therapy
CPT/HCPCS: 36415; 80053; 84550; 85025

== ENCOUNTER → 2024-05-31 08:34 | Outpatient (CLI) | payer MEDICARE, SELFPAY ==
[2023-06-18 16:25] VITALS: BMI 29.2
[2024-05-31 09:32] LABS: Hematocrit 39.2 % (36-46); Mean Corpuscular Hemoglobin 31.1 PG (26-34); Mean Corpuscular Volume 94.1 fL (80-100); Platelet Count 244 X10^3/uL (150-400); Red Blood Cell Count 4.17 X10^6/uL (4.0-5.2); Red Cell Distribution Width 12.5 % (11.6-14.8); White Blood Cell Count 5.2 X10^3/uL (4.5-11.0)
[2024-05-31 09:52] LABS: BUN Creatinine Ratio 19.4 (6-22); Blood Urea Nitrogen 19 mg/dL (7-17); Calcium 9.4 mg/dL (8.4-10.2); Carbon Dioxide 26 mmol/L (22-32); Chloride 105 mmol/L (98-107); Cholesterol 165 mg/dL (140-199); Estimated Glomerular Filt Rate 56 mL/min (>60); Glucose 83 mg/dL (80-110); HDL Cholesterol 45 mg/dL (40-60); HEMOLYSIS < 15 (0-50); LDL Cholesterol Calculated 85 mg/dL (<100); Potassium 4.2 mmol/L (3.4-5.1); Sodium 138 mmol/L (137-145); Triglycerides 174 mg/dL (35-150)
[2024-05-31 10:22] LABS: TSH w/ Reflex to FT4 2.11 uIU/mL (0.47-4.68)
== END ==
PROVIDERS: PCP Student in an Organized Health Care Education/Training Program; Referring Provider Internal Medicine Cardiovascular Disease; Visit Provider Internal Medicine Cardiovascular Disease
DX: I48.0 Paroxysmal atrial fibrillation (principal); E78.5 Hyperlipidemia, unspecified; Z79.01 Long term (current) use of anticoagulants
CPT/HCPCS: 36415; 80048; 80061; 84443; 85027

== ENCOUNTER 2024-06-11 07:37 | Emergency (ER) | payer MEDICARE, SELFPAY ==
[2023-06-18 16:25] VITALS: BMI 29.2
[2024-06-11] VITALS (7 sets, daily range): BP systolic 115–127; BP diastolic 56–73; PULSE 78–90; RESP 17–24; TEMP 36.6; O2SAT 94–98; BMI 30.5
--- NOTE | 2024-06-11 07:59 | DI.CT.S_ITS ---
PROCEDURE: CT CERVICAL SPINE WO CON INDICATIONS: syncope on mayra hit her head TECHNIQUE: Noncontrast 3 mm thick sections acquired from the skull base to the T4 level. Sagittal and coronal reformats were then constructed. For radiation dose reduction, the following was used: automated exposure control, adjustment of mA and/or kV according to patient size. COMPARISON: None. FINDINGS: Image quality: Excellent. Bones: No fractures or dislocations. Multilevel degenerative changes of the spine. Reversal the normal cervical lordosis. Decreased osseous mineralization. Visualized superior ribs are intact. Soft tissues: Prevertebral soft tissues are normal in thickness. No paravertebral hematomas. No apical pneumothoraces. IMPRESSION: No displaced fracture or traumatic subluxation. Dictated by: Braulio Hurst M.D. on 06/11/2024 at 8:50 Approved by: Braulio Hurst M.D. on 06/11/2024 at 8:51
--- NOTE | 2024-06-11 07:59 | DI.RAD.S_ITS ---
PROCEDURE: XR CHEST 1V INDICATIONS: chest pain TECHNIQUE: One view of the chest was acquired. COMPARISON: [facility], CR, XR CHEST 1V, 06/19/2023, 14:15. FINDINGS: Surgical changes and devices: None. Lungs and pleura: Lungs are clear. No pleural effusions or pneumothorax. Mediastinum: Mediastinal contours appear normal. Heart size is normal. Bones and chest wall: No suspicious bony lesions. Overlying soft tissues appear unremarkable. IMPRESSION: No acute cardiopulmonary abnormality is seen. Dictated by: Braulio Hurst M.D. on 06/11/2024 at 8:41 Approved by: Braulio Hurst M.D. on 06/11/2024 at 8:41
--- NOTE | 2024-06-11 07:59 | EKG_ITS ---
[address] [address] Test Date: 2024-06-11 Pat Name: Johanny Sheridan Department: Room: Gender: Female [employer] Sales Representative: FERNANDA : 1940 Requested By: Order Number: [id number] Reading MD: Jeremias Matute MD Measurements Intervals [place] Rate: 86 P: 21 RI: 192 QRS: -11 QRSD: 98 T: 41 QT: 386 QTc: 461 Interpretive Statements Normal sinus rhythm Electronically Signed On 06-11-2024 12:03:01 PST by Jeremias Matute MD
--- NOTE | 2024-06-11 07:59 | DI.CT.S_ITS ---
PROCEDURE: CT HEAD/BRAIN WO CON INDICATIONS: syncope on mayra hit her head TECHNIQUE: Noncontrast 4.5 mm thick angled axial sections acquired from the foramen magnum to the vertex, with coronal and sagittal reformats. For radiation dose reduction, the following was used: automated exposure control, adjustment of mA and/or kV according to patient size. COMPARISON: [facility], CT, CT HEAD/BRAIN WO CON, 06/18/2023, 10:35. FINDINGS: Image quality: Diagnostic. CSF spaces: Basal cisterns are patent. No extra-axial fluid collections. The ventricles are symmetric in size and shape. Brain: No intracranial bleeds or masses. There is cerebral volume loss for age, with resultant ventricular and sulcal prominence. There are periventricular and deep white matter chronic small vessel ischemic changes. There is intracranial internal carotid artery atherosclerosis. Skull and face: Calvarium and visualized facial bones appear intact, without suspicious lesions. Sinuses: Visualized sinuses and mastoids are clear. IMPRESSION: No acute intracranial pathology. Dictated by: Braulio Hurst M.D. on 06/11/2024 at 8:48 Approved by: Braulio Hurst M.D. on 06/11/2024 at 8:49
[2024-06-11 08:08] LABS: Add Manual Diff / Slide Review NO; Basophils Absolute Auto 100 /uL (0-100); Basophils Percent Auto 1.3 % (0-2); Eosinophils Absolute Auto 200 /uL (0-450); Eosinophils Percent Auto 3.2 % (2-4); Hemoglobin 12.8 g/dL (12.0-16.0); Lymphocytes Absolute Auto 1600 /uL (1100-4500); Lymphocytes Percent Auto 33.2 % (25-40); Mean Corpuscular HGB Conc 32.7 % (30-36); Mean Corpuscular Hemoglobin 30.7 PG (26-34); Mean Corpuscular Volume 93.9 fL (80-100); Monocytes Absolute Auto 600 /uL (0-900); Monocytes Percent Auto 11.9 % (3-14); Neutrophils Absolute Auto 2500 /uL (1500-7000); Neutrophils Percent Auto 50.4 % (50-75); Platelet Count 226 X10^3/uL (150-400); Red Blood Cell Count 4.15 X10^6/uL (4.0-5.2); Red Cell Distribution Width 12.5 % (11.6-14.8); White Blood Cell Count 4.9 X10^3/uL (4.5-11.0)
[2024-06-11 08:19] LABS: INR 1.1 (0.9-1.3); Prothrombin Time 11.9 SECONDS (9.4-12.5)
[2024-06-11 08:22] LABS: PTT Partial Thromboplastin Tim 31 SECONDS (25.1-36.5)
[2024-06-11 08:23] LABS: Albumin 3.9 g/dL (3.5-5.0); Calcium 9.3 mg/dL (8.4-10.2); Chloride 108 mmol/L (98-107); Glucose 102 mg/dL (80-110); HEMOLYSIS < 15 (0-50); Lipase 91 U/L (23-300); Magnesium 1.8 mg/dL (1.6-2.3); Potassium 3.7 mmol/L (3.4-5.1); Sodium 139 mmol/L (137-145)
[2024-06-11 08:26] LABS: Alanine Aminotransferase 22 IU/L (<35); Alkaline Phosphatase 91 U/L (38-126); Aspartate Aminotransferase 35 IU/L (14-36); BUN Creatinine Ratio 22.6 (6-22); Bilirubin Total 0.5 mg/dL (0.2-1.3); Blood Urea Nitrogen 21 mg/dL (7-17); Carbon Dioxide 25 mmol/L (22-32); Creatine Kinase 68 U/L (30-135); Estimated Glomerular Filt Rate 60 mL/min (>60)
[2024-06-11 08:37] LABS: NT-proBNP (BNP-Adult 18+) 636 pg/mL (<450); Troponin I 0.032 ng/mL (0.01-0.034)
--- NOTE | 2024-06-11 08:46 | ED.FALL ---
HPI - Fall General Chief Complaint: Trauma Stated Complaint: head injury, wound on head, syncope Time Seen by Provider: 06/11/24 07:59 Source: patient and family Mode of arrival: Ambulatory History of Present Illness HPI Narrative: Patient is a 84-year-old female history of atrial fibrillation on Eliquis presenting today after ground level fall. [place] was walking around when she tripped and fell hitting her head. Loss of consciousness she has a small laceration posteriorly. No neck pain no rib pain no pelvic pain. She denies any chest pain or palpitations. Overall feeling her normal self. She does have some complaints of her right lower leg pain but is able to weightbear and ambulatory. Related Data Previous Rx's Medication Instructions Recorded apixaban 2.5 mg tablet 2.5 mg PO BID 90 days #180 tabs 06/20/23 allopurinol 100 mg tablet 200 mg (2 x 100 mg) PO DAILY #180 12/15/23 tabs methocarbamol 500 mg tablet 500 mg PO ONCE PM #90 tabs 01/19/24 betamethasone, augmented 0.05 % 1 applic topical DAILY #45 grams 03/02/24 topical cream nystatin 100,000 unit/gram topical 1 applic topical BID #60 grams 05/10/24 cream imiquimod 3.75 % topical cream in 1 pump topical BEDTIME #7.5 grams 05/18/24 a pump Allergies Allergy/AdvReac Type Severity Reaction Status Date / Time codeine [CODEINE] Allergy Intermediate TACHYCARDIA, Verified 06/11/24 08:12 RASH acetaminophen [From PERCOCET] Allergy Unknown CONFUSION Verified 06/11/24 08:12 oxycodone [From PERCOCET] Allergy Unknown CONFUSION Verified 06/11/24 08:12 Sulfa (Sulfonamide Allergy Unknown TACHYCARDIA, Verified 06/11/24 08:12 Antibiotics) RASH [SULFA (SULFONAMIDE ANTIBIOTICS)] morphine [MORPHINE] AdvReac Intermediate TACHYCARDIA, Verified 06/11/24 08:12 RASH Penicillins [PENICILLINS] AdvReac Mild TACHYCARDIA, Verified 06/11/24 08:12 RASH adhesive tape [ADHESIVE TAPE] AdvReac Unknown RASH Verified 06/11/24 08:12 Patient History Medical History Transient ischemic attack Actinic keratoses Gout Stroke (~2017) Measles (~1945) Chicken pox (~1939) Cataracts, bilateral Hemorrhoid Diverticular disease Colon polyps Skin cancer Family History Father History of heart attack Mother History of heart attack Social History household members: significant other Smoking Status: Never smoker alcohol intake: never substance use type: does not use Smoking Status: Never smoker alcohol intake frequency: holidays/special occasions only Exam Initial Vital Signs Initial Vital Signs: Vital Signs Temperature 97.8 F 06/11/24 07:40 Pulse Rate 89 06/11/24 07:40 Respiratory Rate 22 06/11/24 07:40 Blood Pressure 127/73 06/11/24 07:40 Pulse Oximetry 95 06/11/24 07:40 Oxygen Delivery Method Room Air 06/11/24 07:40 GENERAL: Alert pleasant 84-year-old female and in no acute distress. HEENT: Head 2 cm laceration posterior scalp with good skin approximation no significant bleeding,EOMI, pupils reactive, face symmetric, moist mucous membranes NECK: No vertebral tenderness no step-off CARDIOVASCULAR: Regular rate and rhythm without murmurs, rubs or gallops. RESPIRATORY: Breath sounds equal bilaterally, no wheezes rales or rhonchi. ABDOMEN: Soft, nontender. Normoactive bowel sounds all 4 quadrants. No guarding or rebound. EXTREMITIES: Normal range of motion, no clubbing.Bilateral pitting edema. Neurovascularly intact Pelvis stable Right lower extremity very small bruise anterior montgomery but knee within normal limit NEUROLOGICAL: Alert and oriented x4.Normal gait and speech. Cranial nerves II through XII grossly intact. [employer] strength equal SKIN: Warm, dry, no laceration, no petechiae, no rashes or lesions. Procedures Laceration Repair Laceration 1: Site: scalp Size (cm): 2 Description: linear Depth: simple, single layer Pre-repair: wound explored Skin layer closed with: jaida (2) Course Orders Ordered: ED Orders 06/11/24 07:51 Complete Blood Count AUTO DIFF Stat Comprehensive Metabolic Panel Stat Lipase Stat Magnesium Stat NT-proBNP (BNP-Adult 18+) Stat PTT Partial Thromboplastin Ino Stat Prothrombin Time INR Stat Troponin & CK Cardiac Panel Stat 06/11/24 07:59 CT cervical spine wo con Stat CT head/brain wo con Stat XR chest 1V Stat EKG-12 Lead Stat Vital Signs Vital signs: Vital Signs - 8 hr 06/11/24 09:30 06/11/24 09:30 Pulse Rate 78 Respiratory Rate 23 Blood Pressure 118/56 L Pulse Oximetry 98 Oxygen Delivery Method Room Air MDM - Fall Lab Data 06/11/24 07:51 06/11/24 07:51 Labs: Lab Results 06/11/24 Range/Units 07:51 WBC 4.9 (4.5-11.0) X10^3/uL RBC 4.15 (4.0-5.2) X10^6/uL Hgb 12.8 (12.0-16.0) g/dL Hct 39.0 (36-46) % MCV 93.9 (80-100) fL MCH 30.7 (26-34) PG MCHC 32.7 (30-36) % RDW 12.5 (11.6-14.8) % Plt Count 226 (150-400) X10^3/uL Neut % (Auto) 50.4 (50-75) % Lymph % (Auto) 33.2 (25-40) % [place] % (Auto) 11.9 (3-14) % Eos % (Auto) 3.2 (2-4) % Baso % (Auto) 1.3 (0-2) % Neut # (Auto) 2500 (1626-4327) /uL Lymph # (Auto) 1600 (0730-2220) /uL [place] # (Auto) 600 (0-900) /uL Eos # (Auto) 200 (0-450) /uL Baso # (Auto) 100 (0-100) /uL PT 11.9 (9.4-12.5) SECONDS INR 1.1 (0.9-1.3) APTT 31 (25.1-36.5) SECONDS Sodium 139 (137-145) mmol/L Potassium 3.7 (3.4-5.1) mmol/L Chloride 108 H (98-107) mmol/L Carbon Dioxide 25 (22-32) mmol/L BUN 21 H (7-17) mg/dL Creatinine 0.93 (0.52-1.04) mg/dL Estimated GFR 60 (>60) mL/min BUN/Creatinine Ratio 22.6 H (6-22) Glucose 102 (80-110) mg/dL Calcium 9.3 (8.4-10.2) mg/dL Magnesium 1.8 (1.6-2.3) mg/dL Total Bilirubin 0.5 (0.2-1.3) mg/dL AST 35 (14-36) IU/L ALT 22 (<35) IU/L Alkaline Phosphatase 91 (38-126) U/L Total Creatine Kinase 68 (30-135) U/L Troponin I 0.032 (0.01-0.034) ng/mL NT-Pro-B Natriuret Pep 636 H (<450) pg/mL Total Protein 6.9 (6.3-8.2) g/dL Albumin 3.9 (3.5-5.0) g/dL Globulin 3.0 (1.7-4.1) g/dL Albumin/Globulin Ratio 1.3 (1.0-2.8) Lipase 91 (23-300) U/L Imaging Data CT scan - head: Radiologist's Impression: PROCEDURE: CT HEAD/BRAIN WO CON INDICATIONS: syncope on eliquis, hit her head TECHNIQUE: Noncontrast 4.5 mm thick angled axial sections acquired from the foramen magnum to the vertex, with coronal and sagittal reformats. For radiation dose reduction, the following was used: automated exposure control, adjustment of mA and/or kV according to patient size. COMPARISON: [facility], CT, CT HEAD/BRAIN WO CON, 06/18/2023, 10:35. FINDINGS: Image quality: Diagnostic. CSF spaces: Basal cisterns are patent. No extra-axial fluid collections. The ventricles are symmetric in size and shape. Brain: No intracranial bleeds or masses. There is cerebral volume loss for age, with resultant ventricular and sulcal prominence. There are periventricular and deep white matter chronic small vessel ischemic changes. There is intracranial internal carotid artery atherosclerosis. Skull and face: Calvarium and visualized facial bones appear intact, without suspicious lesions. Sinuses: Visualized sinuses and mastoids are clear. IMPRESSION: No acute intracranial pathology. Dictated by: Braulio Hurst M.D. on 06/11/2024 at 8:48 CT - cervical spine: Radiologist's Impression: PROCEDURE: CT CERVICAL SPINE WO CON INDICATIONS: syncope on eliquis, hit her head TECHNIQUE: Noncontrast 3 mm thick sections acquired from the skull base to the T4 level. Sagittal and coronal reformats were then constructed. For radiation dose reduction, the following was used: automated exposure control, adjustment of mA and/or kV according to patient size. COMPARISON: None. FINDINGS: Image quality: Excellent. Bones: No fractures or dislocations. Multilevel degenerative changes of the spine. Reversal the normal cervical lordosis. Decreased osseous mineralization. Visualized superior ribs are intact. Soft tissues: Prevertebral soft tissues are normal in thickness. No paravertebral hematomas. No apical pneumothoraces. IMPRESSION: No displaced fracture or traumatic subluxation. Dictated by: Braulio Hurst M.D. on 06/11/2024 at 8:50 Approved by: Braulio Hurst M.D. on 06/11/2024 at 8:51 Chest x-ray: Radiologist's Impression: PROCEDURE: XR CHEST 1V INDICATIONS: chest pain TECHNIQUE: One view of the chest was acquired. COMPARISON: [facility], , XR CHEST 1V, 06/19/2023, 14:15. FINDINGS: Surgical changes and devices: None. Lungs and pleura: Lungs are clear. No pleural effusions or pneumothorax. Mediastinum: Mediastinal contours appear normal. Heart size is normal. Bones and chest wall: No suspicious bony lesions. Overlying soft tissues appear unremarkable. IMPRESSION: No acute cardiopulmonary abnormality is seen. Dictated by: Braulio Hurst M.D. on 06/11/2024 at 8:41 Approved by: Braulio Hurst M.D. on 06/11/2024 at 8:41 ECG Data Attestation: I personally reviewed and interpreted this ECG as follows: Prior ECG tracings: available for review Interpretation: Normal sinus rhythm rate 86 PA interval 192 QRS [address] changes MDM Narrative Medical decision making narrative: [facility] CC: Ground level fall Complicating co-morbidities: Atrial fibrillation on Eliquis Differential considered: Mechanical fall intracranial hemorrhage, electrolyte abnormality infection Exam documented above, pertinent findings include: Small laceration posterior scalp 2 cm no crepitations no depression no neurovascular deficits Lab Test results independently reviewed as above. Pertinent findings: No leukocytosis no anemia No ERICKSON electrolytes no clinical significant abnormalities normal sodium and potassium, glucose 102 Bilirubin liver enzymes within normal limits Troponin and BNP unremarkable Independently reviewed EKG as above Sinus rhythm no ischemia Imaging studies independently reviewed: Head CT negative for intracranial hemorrhage CT cervical spine negative for fracture Chest x-ray no acute intracranial process Treatments: Staple Discussion: Patient 84-year-old female presents to his mechanical ground level fall. She is on Eliquis documented as modified trauma. She was 2 cm laceration on her head. Workup in the ED is overall reassuring no significant injury blood work does not show any abnormalities Discharge Plan Departure Patient Disposition: Home Clinical Impression: Closed head injury, Laceration of head Instructions: DI for Laceration Repair -- Jaida, Closed Head Injury Activity Restrictions/Additional Instructions: *You have been diagnosed with closed head injury, head laceration *What to do: Please have jaida removed in about 5-7 days with your primary care provider walk-in clinic or you may return to the ED. May shower as normal. *Continue to take medications as directed Tylenol 650 mg every 4-6 hours if needed for [id number] pain *Follow up with your primary care provider in 2-3 days or call [phone] *Return to ER if you should have increasing confusion vomiting weakness numbness tingling [or] any new, worsening or concerning symptoms Prescriptions: No Action betamethasone, augmented 0.05 % cream 1 applic topical DAILY Qty: 45 2RF imiquimod 3.75 % cream in metered-dose pump 1 pump topical BEDTIME Qty: 7.5 1RF Rx Instructions: Apply a thin layer once daily (using up to 1 packet or 1 full actuation of pump) prior to bedtime; leave on skin for ~8 hours, then remove with mild soap and water. Continue treatment until there is total clearance of the warts or for a maximum duration of therapy of 8 weeks. allopurinol 100 mg tablet 200 mg PO DAILY Qty: 180 0RF methocarbamol 500 mg tablet 500 mg PO ONCE PM Qty: 90 3RF nystatin 100,000 unit/gram cream 1 applic topical BID Qty: 60 0RF apixaban 2.5 mg tablet 2.5 mg PO BID 90 Days Qty: 180 4RF Referrals: Cherry Moreira MD [Primary Care Provider] - Stand Alone Forms: Patient Portal/API/Survey
[2024-06-11 09:10] LABS: Albumin Globulin Ratio 1.3 (1.0-2.8); Total Protein 6.9 g/dL (6.3-8.2)
== END 2024-06-11 09:50 | disposition home or self-care (01) ==
PROVIDERS: Emergency Provider Emergency Medicine; PCP Student in an Organized Health Care Education/Training Program
DX: S01.01XA Laceration without foreign body of scalp, initial encounter (principal); S09.90XA Unspecified injury of head, initial encounter; R55 Syncope and collapse; R07.9 Chest pain, unspecified; I48.91 Unspecified atrial fibrillation; Z79.01 Long term (current) use of anticoagulants; W01.0XXA Fall on same level from slipping, tripping and stumbling without subsequent striking against object, initial encounter; Z88.2 Allergy status to sulfonamides
CPT/HCPCS: 36415; 70450; 71045; 72125; 80053; 82550; 83690; 83735; 83880; 84484; 85025; 85610; 85730; 93005; 93010; 99284

== ENCOUNTER → 2024-07-08 15:25 | Outpatient (CLI) | payer MEDICARE, SELFPAY ==
[2023-06-18 16:25] VITALS: BMI 29.2
--- NOTE | 2024-07-08 15:29 | DI.MG.S_ITS ---
MM screening mammo BI: 07/08/2024. BI-RADS: 2 CLINICAL: 84-year old female for bilateral screening mammogram. No Tyrer-Cuzick risk score calculation due to patient's age being over 85 years old. No personal or first-degree family history of breast cancer. PRIOR EXAMS 06/25/2023, 06/11/2022, 05/24/2021, 05/22/2020, 05/20/2019, 05/15/2018, 04/14/2017, 04/11/2016, 04/10/2015. MAMMOGRAPHY TECHNIQUE: 2D and 3D (tomosynthesis) digital mammographic views obtained, with additional images as needed for full coverage. Current study was also evaluated with a Computer Aided Detection (CAD) system. DENSITY B. There are scattered areas of fibroglandular density. MAMMOGRAPHY FINDINGS Bilateral: Typically-benign vascular calcifications noted. IMPRESSION: * No evidence of malignancy with benign findings. RECOMMENDATIONS Bilateral * Annual screening mammography. OVERALL ASSESSMENT CATEGORY BI-RADS-2: Benign. The [employer] recommends annual screening mammography beginning at age 40 for women with average risk of breast cancer. ELECTRONICALLY SIGNED: Chrales Rankin M.D. on 07/09/2024 at 08:25:32 AM PT Interpreting Station ID: [id number]
== END ==
PROVIDERS: PCP Student in an Organized Health Care Education/Training Program; Referring Provider Student in an Organized Health Care Education/Training Program; Visit Provider Student in an Organized Health Care Education/Training Program
DX: Z12.31 Encounter for screening mammogram for malignant neoplasm of breast (principal); R92.1 Mammographic calcification found on diagnostic imaging of breast
CPT/HCPCS: 77063; 77067